=== PATIENT | male | born 1960 | race Caucasian/White ===

== ENCOUNTER 2024-07-29 05:51 | Observation (INO) ==
[2024-07-29] MEDS: ONDANSETRON INJ 2 MG/ML 2 ML VIAL IV STA ×2 (06:31→12:16)
[2024-07-29] MEDS: MoRPHine SULFATE 10 MG/ML CARP/VIAL IV STA (06:31)
[2024-07-29 06:46] LABS: Basophils # (auto) 0.03 K/uL (0.00-0.20); Basophils % (auto) 0.4 %; Eosinophils # (auto) 0.14 K/uL (0.00-0.50); Eosinophils % (auto) 1.7 %; Hematocrit (blood only) 41.2 % (42.0-52.0); Hemoglobin 14.5 g/dl (14.0-18.0); Immature Granulocytes # (auto) 0.02 K/uL (0.01-0.20); Immature Granulocytes % (auto) 0.2 %; Lymphocytes # (auto) 1.87 K/uL (1.20-3.40); Lymphocytes % (auto) 22.2 %; Mean Corpuscular Hemoglobin 32.3 pg (25.0-34.0); Mean Corpuscular Hgb Conc 35.2 g/dL (32.0-36.0); Mean Corpuscular Volume 91.8 fL (80.0-100.0); Mean Platelet Volume 10.4 fL (9.4-12.4); Monocytes # (auto) 0.39 K/uL (0.11-0.59); Monocytes % (auto) 4.6 %; Neutrophils # (auto) 5.96 K/uL (1.40-6.50); Neutrophils % (auto) 70.9 %; Platelet Count 254 K/uL (130-400); RDW Coefficient of Variation 12.1 % (11.5-14.5); RDW Standard Deviation 41.1 fL (36.4-46.3); Red Blood Count 4.49 M/uL (4.70-6.10); White Blood Count 8.41 K/ul (4.8-10.8)
[2024-07-29 06:50] LABS: Appearance Urine Clear (Clear); Bacteria Urine Automated None Seen (None Seen); Bilirubin Urine Negative (Negative); Blood Urine 1+ (Negative); Cast Urine Automated 0-2 /lpf (0-2); Color Urine Yellow; Epithelial Cell Urine Auto 0-2 /hpf (0-2); Glucose Urine UA Negative (Negative); Ketones Urine Negative (Negative); Leukocyte Esterase Urine Negative (Negative); Nitrite Urine Negative (Negative); Protein Urine 1+ (Negative); Specific Gravity Urine 1.024 (1.000-1.030); Urobilinogen Urine Negative (Negative); WBC Urine Automated 0-5 /hpf (0-5); pH Urine 5.5 (4.5-7.5)
[2024-07-29 07:00] LABS: Albumin Globulin Ratio 1.4 (0.9-2); Albumin Level 4.2 gm/dl (3.4-5.0); BUN Creatinine Ratio 17.6 (10-20); Bilirubin,Total 0.5 mg/dl (0.2-1.0); Creatinine Clr Calc Pharmacy 34.5 ml/min; Globulin 3.1 gm/dl (2.5-4.0); Potassium 4.4 mmol/L (3.5-5.1); Total Protein 7.3 gm/dl (6.0-8.3)
[2024-07-29] MEDS: SODIUM CHLORIDE 0.9% 1,000 ML IV ONE (07:20)
[2024-07-29] MEDS: HYDROmorphone INJ 0.5 MG/0.5 ML SYR IV PRN (08:13)
--- NOTE | 2024-07-29 08:30 | XRay Report ---
KUB HISTORY: Acute left-sided flank pain left flank pain COMPARISON: CT abdomen and pelvis 07/24/2024 FINDINGS: The bowel gas pattern is non-obstructive. There is no organomegaly. Surgical clips project over the pelvis. Herniorrhaphy coils. Moderate colonic fecal retention. Numerous calculi of the kidn eys are redemonstrated measuring up to approximately 4 mm.. No ureteral calculi. No pneumoperitoneum or pneumatosis. Lumbar levoscoliosis. No fracture. IMPRESSION: 1. Moderate fecal retention with partial obscuration of the renal shadows. 2. Bilateral nephrolithiasis. No ureteral calculi identified. ACT 112: Negative or not required by law. The above report was generated using voice recognition software. It may contain grammatical, syntax o r spelling errors. Electronically signed by: Darryl Tellez M.D. 07/29/2024 8:28 AM
--- NOTE | 2024-07-29 11:32 | Urology Consultation ---
Date of Consultation July 29, 2024 Assessment & Plan (1) Kidney stones: (2) Hydronephrosis, left: Plan 63 yo M who with a history of nephrolithiasis who presents with left flank pain. CT scan showed obstructing left proximal ureteral calculus. -Given intractable pain, recommended cystoscopy with left stent placement -Consent obtained, patient marked -Ancef to OR History of Present Illness History of Present Illness 63 yo M who with a history of nephrolithiasis who presents with left flank pain. CT scan showed obstructing left proximal ureteral calculus. Afebrile, stable vitals. Labs WNL, patient has CKD. UA negative. Pain unable to be controlled in ED. NPO since last night. Allergies Allergy/AdvReac Type Severity Reaction Status Date / Time Penicillins Allergy Verified 07/29/24 09:17 Home Medications Medication Instructions Recorded Confirmed Type gabapentin 100 mg capsule 100 mg PO HS 07/24/24 07/29/24 History hydrocodone 5 mg-acetaminophen 325 1 tab PO BID PRN Pain 07/24/24 07/29/24 History mg tablet oxycodone-acetaminophen 7.5 mg-325 1 tab PO Q4H PRN Pain 07/24/24 07/29/24 History mg tablet triamcinolone acetonide 55 mcg 2 spray intranasal HS 07/29/24 07/29/24 History nasal spray aerosol (Nasacort) Patient History Social History Smoking Status: Never smoker Preferred Language: Syriac Feels Safe at Home: Yes Physical Exam Physical Exam: General: Alert and oriented, no acute distress HEENT: Normocephalic, mucous membranes moist Pulmonary: Nonlabored respirations Abdomen: Nondistended Extremities: Moves all 4 spontaneously Neuro: No gross deficits Skin: Warm, dry, no rashes noted Results & Data Vital Signs (Past 12 Hours) Vital Signs Temp Pulse Pulse Resp BP BP Pulse Ox 07/29/24 10:14 86 20 206/122 H 95 07/29/24 08:51 83 18 186/108 H 96 07/29/24 05:55 36.5 C 56 L 20 213/122 H 99 O2 Del Method 07/29/24 10:14 Room Air 07/29/24 08:51 Room Air 07/29/24 05:55 Room Air PG Care Time/CCT Total # of Minutes Spent Total Time Spent with Patient: Total time spent is greater than 50% in coordination of care (as documented) at patient's floor/unit and/or counseling patient: Coding Level of Care Code 11050 INT INP/OBS CARE MIN Diagnoses Kidney stones N20.0 Hydronephrosis, left N13.30
[2024-07-29] MEDS ORDERED: LIDOCAINE 2% 2 ML VIAL/AMP(20MG/ML) INFIL ONE (11:43)
[2024-07-29] MEDS ORDERED: PROPOFOL IV EMULSION 10 MG/ML 20 ML VIAL IV ONE ×2 (11:43→12:37)
--- NOTE | 2024-07-29 11:46 | Anesthesiology Consultation ---
Date of Service July 29, 2024 Assessment & Plan Chart Review Chart Review: Acceptable Risk for Surgery and Patient NOT seen in Pre Admission Testing History Surgery Operation Date: 07/29/24 13:00 Proposed Procedures p Cystoscopy(Left) - Alan Henderson MD s Ureteral Stent Insertion/Removal(Left) - Alan Henderson MD Height/Weight Height: 5 ft 5 in Weight: 60.2 kg Allergies Allergy/AdvReac Type Severity Reaction Status Date / Time Penicillins Allergy Verified 07/29/24 09:17 Medications Home Medications Medication Instructions Recorded Confirmed Last Taken gabapentin 100 mg capsule 100 mg PO HS 07/24/24 07/29/24 07/28/24 hydrocodone 5 mg-acetaminophen 325 1 tab PO BID PRN Pain 07/24/24 07/29/24 07/29/24 04:00 mg tablet oxycodone-acetaminophen 7.5 mg-325 1 tab PO Q4H PRN Pain 07/24/24 07/29/24 Unknown mg tablet triamcinolone acetonide 55 mcg 2 spray intranasal HS 07/29/24 07/29/24 07/28/24 nasal spray aerosol (Nasacort) Active Medications Generic Name Dose Route Start Last Admin Trade Name Freq PRN Reason Stop Dose Admin Hydromorphone HCl 0.5 mg 07/29/24 07:07 07/29/24 11:31 Hydromorphone Inj 0.5 Mg/0.5 Ml Syr IV 08/12/24 07:06 0.5 mg Q15M PRN Administration Pain Social History Smoking Status: Never smoker Physical Exam Vital Signs Last Vital Signs Temp 36.5 C 07/29/24 05:55 Pulse 86 07/29/24 10:14 Resp 20 07/29/24 10:14 BP 206/122 H 07/29/24 10:14 Pulse Ox 95 07/29/24 10:14 O2 Del Method Room Air 07/29/24 10:14 Testing Laboratory Results 07/29/24 06:22 07/29/24 06:22 Urine Color Yellow 07/29/24 06:22 Urine Appearance Clear (Clear) 07/29/24 06:22 Urine pH 5.5 (4.5-7.5) 07/29/24 06:22 Ur Specific [place] 1.024 (1.000-1.030) 07/29/24 06:22 Urine Protein 1+ (Negative) H 07/29/24 06:22 Urine Glucose (UA) Negative (Negative) 07/29/24 06:22 Urine Ketones Negative (Negative) 07/29/24 06:22 Urine Nitrite Negative (Negative) 07/29/24 06:22 Ur Leukocyte Esterase Negative (Negative) 07/29/24 06:22 Urine WBC (Auto) 0-5 /hpf (0-5) 07/29/24 06:22 Urine RBC (Auto) 11-20 /hpf (0-2) H 07/29/24 06:22 U Hyaline Cast (Auto) 0-2 /lpf (0-2) 07/29/24 06:22 U Epithel Cells (Auto) 0-2 /hpf (0-2) 07/29/24 06:22 Urine Bacteria (Auto) None Seen (None Seen) 07/29/24 06:22
--- NOTE | 2024-07-29 11:47 | CT Scan Report ---
ABDOMEN AND PELVIS CT WITHOUT CONTRAST CT DOSE: 498.2 mGy.cm HISTORY: Acute left flank pain left flank pain TECHNIQUE: Multiaxial CT images of the abdomen and pelvis were performed without contrast. A dose lo wering technique was utilized adhering to the principles of ALARA. COMPARISON STUDY: 07/24/2024 FINDINGS: Cardiomegaly. Mild bibasilar atelectasis. No pneumatosis or pneumoperitoneum. Unremarkable spleen is moderately dense. Distended gallbladder. Unremarkable liver. Bilateral renal vascular calci fications. Nonobstructing calculi in the right kidney measure up to 5 mm. Moderate left-sided hydrour eteronephrosis with perinephric and periureteral inflammatory stranding secondary to 2 adjacent left ureteral calculi measuring up to 5 mm at the level of L3-L4. Nonobstructing left renal calculi measur ing up to approximately 4 mm. Partial distention of the urinary bladder. Prostamegaly. No lymphadenopathy. Distention of the stomach. Colonic diverticulosis. Prior left-sided hernia repair . Small nonspecific wall thickening of the cecum and ascending colon. Small fat filled umbilical jeffy ia. A small right inguinal hernia contains mesenteric fat and nonobstructed loop of bowel. Degenerati ve changes of the spine, pelvis and hips. Normal appendix. Lumbar levoscoliosis. IMPRESSION: 1. Moderate left-sided hydroureteronephrosis secondary to two adjacent left ureteral calculi measurin g up to 5 mm. 2. Nonobstructing bilateral nephrolithiasis. 3. Colonic diverticulosis. 4. Small right inguinal hernia contains a nonobstructed loop of bowel, unchanged. 5. Mild wall thickening of the cecum and ascending colon with partial distention. 6. Additional findings as above. ACT 112: Negative or not required by law. The above report was generated using voice recognition software. It may contain grammatical, syntax o r spelling errors. Electronically signed by: Darryl Tellez M.D. 07/29/2024 11:45 AM
[2024-07-29] MEDS: ceFAZolin 2000MG 2,000 MG/15 ML SYR IV ONE (12:16)
[2024-07-29] MEDS: hydrALAZINE HCL 20 MG/ML VIAL IV ONE ×2 (12:16→12:34)
[2024-07-29] MEDS ORDERED: fentaNYL citrate PF 100 MCG/2 ML VIAL ONE (12:35)
[2024-07-29] MEDS ORDERED: ONDANSETRON INJ 2 MG/ML 2 ML VIAL ONE (12:36)
[2024-07-29] MEDS ORDERED: HYDROmorphone INJ 0.5 MG/0.5 ML SYR IV PRN ×2 (12:53)
[2024-07-29] MEDS ORDERED: ONDANSETRON INJ 2 MG/ML 2 ML VIAL IV PRN ×2 (12:53→12:55)
[2024-07-29] MEDS ORDERED: ATROPINE SULFATE 0.1 MG/ML 10ML SYR IV PRN (12:55)
[2024-07-29] MEDS ORDERED: HYDROmorphone INJ 1 MG/ML SYRINGE IV PRN (12:55)
[2024-07-29] MEDS ORDERED: fentaNYL citrate PF 100 MCG/2 ML VIAL IV PRN (12:55)
[2024-07-29] MEDS ORDERED: ePHEDrine sulfate 50 MG/ML AMP IV PRN (12:55)
--- NOTE | 2024-07-29 13:14 | History & Physical Report ---
Date of Service July 29, 2024 Assessment & Plan (1) Hydronephrosis, left: (2) Kidney stones: Plan This is a 63 year old gentleman with past medical history of kidney stones and inguinal hernia who presented to the ED on 07/29 for flank pain. #hydroureteronephrosis/obstructive stone CTAP: moderate left sided hydroureteronephrosis secondary to two adjacent left ureteral calculi measuring up to 5mm. nonobstructing b/l nephrolithiasis. small inguinal hernia contains nonobstructed loop of bowel unchanged. mild wall thickening of cecum and ascending colon w/ partial distention KUB: moderate fecal retention w/ partial obscuration of renal shadows. b/l ne phrolithiasis. CBC w/o leukocytosis BMP w/ creatinine of 1.82, improved from 2/3. Unsure of baseline but elevation likely secondary to obstructive stone Urinalysis + for blood, negative for infection Urology consulted - recommending cystoscopy, pain management. preop Ancef given prior to procedure. Pain regimen - Dilaudid 0.5mg or 1mg IV q 3h for severe pain. Zofran prn N/V Clear liquid diet following procedure, can advance as tolerated. Patient does have upcoming appointment in [place] w/ urologist as he plans to relocate to that area. #HTN No history of hypertension per pt chart and not currently on anti-hypertensives s/p IV Hydralazine in ED and BP still 218/122 Likely secondary to pain Monitor BP, patient may require initiation of anti-hypertensive if pressures continue to stay elevated and pain becomes controlled Case discussed w/ Dr. Damian at time of admission. DVT prophylaxis: SCD's, encourage ambulation as able. Code: full History of Present Illness Primary Care Provider: NO PCP This is a 63 year old gentleman with past medical history of kidney stones and inguinal hernia who presented to the ED on 07/29 for flank pain. Patient reports that he has had ongoing flank pain for the last ~3.5 weeks. He reports it worsened overnight which was what prompted him to come to the ED. Patient reports 12/10 on pain scale at time of my encounter despite multiple doses of pain medication. Patient reports he has a history of kidney stones and is currently in the process of relocating to [place]. He reports he has a urology appointment in [place] in the upcoming weeks. He reports he has had stent placement in the past. He had an episode of emesis earlier but was given Zofran with relief. In the ED he underwent a CT scan that revealed moderate left sided hydroureteronephrosis secondary to two adjacent left ureteral calculi measuring up to 5mm. His creatinine was 1.82, baseline unknown given lack of labs in chart but this was improved from his recent ED trip for flank pain on 07/23. WBC WNL. Urology was consulted and patient is to go emergently to OR to have stent placed. He was given Ancef preoperatively. Patient also has been hypertensive since reporting to the ED, likely secondary to pain. He is not on anti- hypertensives outpatient per his medications. Allergies Allergy/AdvReac Type Severity Reaction Status Date / Time Penicillins Allergy Verified 07/29/24 09:17 Home Medications Medication Instructions Recorded Confirmed Type gabapentin 100 mg capsule 100 mg PO HS 07/24/24 07/29/24 History hydrocodone 5 mg-acetaminophen 325 1 tab PO BID PRN Pain 07/24/24 07/29/24 History mg tablet oxycodone-acetaminophen 7.5 mg-325 1 tab PO Q4H PRN Pain 07/24/24 07/29/24 History mg tablet triamcinolone acetonide 55 mcg 2 spray intranasal HS 07/29/24 07/29/24 History nasal spray aerosol (Nasacort) Past Med/Surg History Problem List (Updated 07/29/24 @ 16:09 by Maninder aMtthew MD) Severe hypertension (Acute) Ureterolithiasis (Acute) Acute left flank pain (Acute) Hydronephrosis, left (Acute) H1N1 influenza (Acute) Kidney stones (Acute) Inguinal hernia (Acute) Right lower quadrant pain (Acute) Social History Smoking Status: Smoker, status unknown Hx Alcohol Use: Yes Hx Substance Use: No Preferred Language: Malaysian Communication Ability: Effective Chemical Cell Changer Required: No Beliefs That Will Affect Care: None Current Living Situation: Spouse Other Information That Helps Us Care for You: No Feels Safe at Home: Yes Safety Concerns: Feels Safe At This Time Assistive Devices: Glasses Physical Exam Constitutional: WD/WN, vitals as above Eyes: PERRL, conjunctivae normal, anicteric sclerae Respiratory: normal respiratory effort, lungs clear to auscultation Cardiovascular: RRR, no murmur, no edema Gastrointestinal (Abdomen): +BS, + tenderness to LLQ. negative CVA t enderness Musculoskeletal: moves all extremities Psychiatric: A+Ox3, euthymic affect Results & Data Results & Data Vital Signs (Past 12 Hours) Vital Signs Temp Pulse Pulse Resp BP BP Pulse Ox 07/29/24 12:48 07/29/24 12:46 93 H 07/29/24 12:26 93 H 24 218/122 H 97 07/29/24 10:14 86 20 206/122 H 95 07/29/24 08:51 83 18 186/108 H 96 07/29/24 05:55 36.5 C 56 L 20 213/122 H 99 O2 Del Method 07/29/24 12:48 Room Air 07/29/24 12:46 07/29/24 12:26 Room Air 07/29/24 10:14 Room Air 07/29/24 08:51 Room Air 07/29/24 05:55 Room Air Supervising Physician Co-Signing Physician Notes I personally saw and examined the patient. I independently reviewed the labs, imaging, problem list, medication list, past medical history and family history. I verified all dillon points and agree with Shavon Jauregui PA-C with the following exceptions and/or additions: 63 year old presents to the ER presents to the ER with left flank pain. Patient seen post op following ureteral stent and reports doing significantly better. O/E HS RRR, no murmurs, Chest CTAB, Abdo SNT, no CVA tenderness A/P Left ureterolithiasis - s/p ureterolithiasis, acetaminophen added PRN, monitor overnight PG Care Time/CCT Total # of Minutes Spent Total Time Spent with Patient: Total time spent is greater than 50% in coordination of care (as documented) at patient's floor/unit and/or counseling patient: Coding Level of Care Code 82960 INT INP/OBS CARE MIN Diagnoses Hydronephrosis, left N13.30 Kidney stones N20.0
--- NOTE | 2024-07-29 13:17 | Operative Report ---
PG Post Operative Report Pre & Post Diagnosis Left urolithiasis Operation Date: 07/29/24 13:00 <No data on this case meets the specified criteria> Left urolithiasis I identified the patient and participated in the time-out.: Yes Procedure Cystoscopy, left retrograde pyelogram with radiographic interpretation, left ureteral stent placement Operation Date: 07/29/24 13:00 <No data on this case meets the specified criteria> Surgeon Alan Henderson MD Licensed Tax Consultant None Estimated Blood Loss 0 Findings See Below Moderate left hydronephrosis. Stent in appropriate position. Specimens None Drains 6 [place] by 26 cm left ureteral stent Anesthesia Type General Complications none Indications 63-year-old male with a left proximal obstructing ureteral calculus and intractable pain Description of Procedure After informed consent was obtained, the patient was transported operative suite. General anesthesia was induced. The patient was placed in dorsal lithotomy position prepped and draped in a sterile fashion. They received preoperative Ancef for antibiotic prophylaxis. An appropriate surgical timeout was performed. A 22 [place] rigid scope was inserted per urethra into the bladder. Flanagan cystoscopy revealed no stones or lesions. I turned my attention the left ureteral orifice and intubated this with a 5 [place] open-ended catheter. A left retrograde pyelogram was shot which showed moderate left hydronephrosis. A sensor wire was advanced into the kidney and confirmed fluoroscopically. A 6 [place] by 26 cm left ureteral stent was deployed with a good proximal coil in the renal pelvis and a good distal coil noted in the bladder. These were confirmed fluoroscopically and under direct visualization, respectively. The bladder was emptied and the scope was removed. This concluded the end of the ca se. All counts were correct at the end of the case. I was present, scrubbed, and actively participated for the entirety of the procedure. I attest to the content of the Intraoperative Record and any orders documented therein. Any exceptions are noted below.
[2024-07-29] MEDS: DIATRIZOATE MEGLUMINE 30% 100ML VIAL INSTIL PRN (13:19)
[2024-07-29] MEDS ORDERED: SUCCINYLCHOLINE CHLORIDE 20 MG/ML 10 ML VIAL IV ONE (13:21)
--- NOTE | 2024-07-29 13:26 | Fluoroscopy Report ---
FL retrograde includes kub CLINICAL HISTORY: Cysto/stentstatus post placement of a left ureteral stent COMPARISON STUDY: CT of same FLUOROSCOPY TIME: 8.2 seconds FLUOROSCOPY IMAGES: 2 EXPOSURE DOSE: 1.60 mGy FINDINGS: Status post placement of a left renal stent which appears to be in satisfactory positioning proximal, distal portion was not imaged. There is persistent hydronephrosis. Lumbar levoscoliosis. IMPRESSION: Fluoroscopic assistance of the above. ACT 112: Negative or not required by law. Electronically signed by: Darryl Tellez M.D. 07/29/2024 1:25 PM
--- NOTE | 2024-07-29 13:43 | Anesthesiology Progress Note ---
Date of Service July 29, 2024 Anesthesia Post Procedure Vital Signs Vital Signs: Temp Pulse Pulse Pulse Resp BP BP 07/29/24 13:40 36.8 C 88 18 156/88 H 07/29/24 13:30 93 H 22 165/89 H 07/29/24 13:23 36.1 C L 89 20 162/90 H 07/29/24 12:48 07/29/24 12:46 93 H 07/29/24 12:26 93 H 24 218/122 H 07/29/24 10:14 86 20 206/122 H 07/29/24 08:51 83 18 186/108 H 07/29/24 05:55 36.5 C 56 L 20 213/122 H Pulse Ox O2 Del Method O2 Flow Rate 07/29/24 13:40 95 Room Air 07/29/24 13:30 97 Room Air 07/29/24 13:23 99 Oxymask 4 07/29/24 12:48 Room Air 07/29/24 12:46 07/29/24 12:26 97 Room Air 07/29/24 10:14 95 Room Air 07/29/24 08:51 96 Room Air 07/29/24 05:55 99 Room Air Pain Intensity Left Flank: Pain Intensity: 10 Transfer of Care Handoff Completed per policy Notes Mental Status: alert / awake / arousable and participated in evaluation Patient Amnestic to Procedure: Yes Nausea / Vomiting: adequately controlled Pain: adequately controlled Airway Patency, RR, SpO2: stable & adequate BP & HR: stable & adequate Hydration State: stable & adequate Anesthetic Complications: no major complications apparent and Pt Satisfied with anesthetic care
--- NOTE | 2024-07-29 16:09 | Emergency Department Note ---
Impression & Plan Acute left flank pain, Hydronephrosis, left, Ureterolithiasis, Severe hypertension ED Provider Note NAME: JC LUNA AGE: 63 SEX: Male INFORMANT: Patient ED PROVIDER(S): Maninder Matthew MD CHIEF COMPLAINT: Flank pain PLAN: Disposition: Admitted Outpatient prescription management: none Referral: None MEDICAL DECISION MAKING: Patient presented because of flank pain. History of kidney stones and note is felt the same. His CBC and chemistry panel was unremarkable. Patient did have hematuria noted on urinalysis. Patient patient was given multiple doses of IV narcotics and was still uncomfortable. He was also treated with IV Zofran x 2. Patient did have an episode of vomiting in the emergency department. Patient was treated with IV hydralazine 5 mg x 2 due to severe hypertension. Suspect a component of pain driving this. The patient had unremarkable KUB and given the multiple doses of IV narcotics required for symptom control he underwent CT imaging. Patient was found to be passing 2 stones on the left side with hydronephrosis. Consultation was made with Dr. Henderson of urology. Case discussed and diagnostics were reviewed. He felt the patient would benefit from a ureteral stent and will likely take the patient to the OR. [facility]. Patient was evaluated in the ER admitted for further management Care/management discussed with: Urology, internal medicine, safety manager Level of care consideration(s): After review of the information above and other included data, I feel the patient requires escalation of care to admission Triage Nursing notes: reviewed and agree them. Vital Signs: reviewed and remarkable for severe hypertension Additional History obtained from: none Chronic Medical/Social Conditions affecting care: none Prior/ Outside/ External records reviewed: none Differential Diagnosis: Renal colic, UTI, appendicitis, diverticulitis, mesenteric ischemia, aortic pathology, infections, inflammatory bowel disease, PUD, biliary pathology, as well as other pathologies. Diagnostics, independently interpreted by me: ECG: none Cardiac Monitoring: Cardiac monitoring ordered by me: The patient was placed on continuous cardiac monitoring and observed. It revealed a normal sinus rhythm at 94 beats per minute without ectopy or evidence of dysrhythmia. Medical decision rules: none Imaging studies: KUB and CT scan as above. I refer you to the EMR for further details. HPI: 63 year old Male arrives for evaluation of left flank pain. This started yesterday and is persisting. The patient also notes the following associated symptoms, none. Patient has a history of kidney stones and this feels the same. He was recently here and worked up with a diagnosis of influenza. He notes influenza symptoms that started 10 days ago but has been feeling good since. He has not had a fever in the last 5 days. The patient has found no relieving factors. Current pain is rated as 10/10. Patient did note some nausea and vomiting as well. Pt denies LOC, headache, fevers, chills, diaphoresis, visual changes, neck pain, chest pain, breathing difficulties, melena, hematochezia, urinary symptoms, numbness, weakness, lymphadenopathy, rash, or other complaints.. PAST MEDICAL HISTORY: See Below, kidney stones, influenza PAST SURGICAL HISTORY: See Below, SOCIAL HISTORY: See Below, retired HOME MEDICATIONS: See Below ALLERGIES: See Below VITALS: See Below PHYSICAL EXAMINATION: GENERAL: Awake, alert, uncomfortable-appearing, in no distress HENT: Normocephalic, atraumatic. Oropharynx unremarkable. EYES: Normal conjunctiva. Sclera non-icteric. NECK: Inspection normal. Non-tender. Supple. No nuchal rigidity. FROM. No masses. RESPIRATORY: Clear to auscultation. No wheezes. No rales. Normal respiratory effort. CARDIAC: Normal rate. Normal rhythm. No murmurs. No rubs. Extremities warm and well perfused. Pulses equal. No JVD. GI: Soft, non-distended. Left-sided tenderness to palpation. No rebound or guarding. No masses. RECTAL: Deferred. MUSCULOSKELETAL: Atraumatic. Chest examination reveals no tenderness. The back is symmetrical on inspection without obvious abnormality. There is n left o CVA tenderness to palpation. No joint edema. LOWER EXTREMITIES: Calves are equal size bilaterally and non-tender. No edema. No discoloration. NEURO: Normal sensorium. No sensory or motor deficits noted. SKIN: No rash or jaundice noted. PROCEDURES: none CRITICAL CARE: none OBSERVATION NOTE: none Past Med/Surg History Problem List (Updated 07/29/24 @ 16:09 by Maninder Matthew MD) Severe hypertension (Acute) Ureterolithiasis (Acute) Acute left flank pain (Acute) Hydronephrosis, left (Acute) H1N1 influenza (Acute) Kidney stones (Acute) Inguinal hernia (Acute) Right lower quadrant pain (Acute) Social History Smoking Status: Never smoker Preferred Language: Hungarian Feels Safe at Home: Yes Allergies Allergies Allergy/AdvReac Type Severity Reaction Status Date / Time Penicillins Allergy Verified 07/29/24 09:17 Home Meds Home Medications Medication Instructions Recorded Confirmed gabapentin 100 mg capsule 100 mg PO HS 07/24/24 07/29/24 hydrocodone 5 mg-acetaminophen 325 1 tab PO BID PRN Pain 07/24/24 07/29/24 mg tablet oxycodone-acetaminophen 7.5 mg-325 1 tab PO Q4H PRN Pain 07/24/24 07/29/24 mg tablet triamcinolone acetonide 55 mcg 2 spray intranasal HS 07/29/24 07/29/24 nasal spray aerosol (Nasacort) Results & Data (ED) Vital Signs Vital Signs - 24 hr 07/29/24 05:55 07/29/24 08:51 07/29/24 10:14 Temperature 36.5 C Temperature Source Oral Pulse Rate 56 L Pulse Rate [Finger] 83 86 Pulse Rhythm Regular Pulse Strength Normal Respiratory Rate 20 18 20 Respiratory Effort / Characteristics Non-Labored Spontaneous Respiratory Depth Normal Respiratory Pattern Regular Blood Pressure 213/122 H Blood Pressure [Left Arm] 186/108 H 206/122 H Blood Pressure Mean 152 Blood Pressure Mean [Left Arm] 134 150 Blood Pressure Position Sitting Pulse Oximetry 99 96 95 Oxygen Delivery Method Room Air Room Air Room Air Sepsis Recent Fever Within 48 Hours No Sepsis New/Unexplained Change in Mental Status N/A Sepsis Action Taken by Nursing No Action Required 07/29/24 12:26 07/29/24 12:46 07/29/24 12:48 Temperature Temperature Source Pulse Rate 93 H Pulse Rate [Finger] 93 H Pulse Rhythm Pulse Strength Respiratory Rate 24 Respiratory Effort / Characteristics Respiratory Depth Respiratory Pattern Blood Pressure Blood Pressure [Left Arm] 218/122 H Blood Pressure Mean Blood Pressure Mean [Left Arm] 154 Blood Pressure Position Pulse Oximetry 97 Oxygen Delivery Method Room Air Room Air Sepsis Recent Fever Within 48 Hours Sepsis New/Unexplained Change in Mental Status Sepsis Action Taken by Nursing Laboratory Data 07/29/24 06:22 07/29/24 06:22 Lab Results 07/29/24 Range/Units 06:22 WBC 8.41 (4.8-10.8) K/ul RBC 4.49 L (4.70-6.10) M/uL Hgb 14.5 (14.0-18.0) g/dl Hct 41.2 L (42.0-52.0) % MCV 91.8 (80.0-100.0) fL MCH 32.3 (25.0-34.0) pg MCHC 35.2 (32.0-36.0) g/dL RDW Std Deviation 41.1 (36.4-46.3) fL RDW Coeff of [place] 12.1 (11.5-14.5) % Plt Count 254 (130-400) K/uL MPV 10.4 (9.4-12.4) fL Immature Gran % (Auto) 0.2 % Neut % (Auto) 70.9 % Lymph % (Auto) 22.2 % [place] % (Auto) 4.6 % Eos % (Auto) 1.7 % Baso % (Auto) 0.4 % Neut # (Auto) 5.96 (1.40-6.50) K/uL Lymph # (Auto) 1.87 (1.20-3.40) K/uL [place] # (Auto) 0.39 (0.11-0.59) K/uL Eos # (Auto) 0.14 (0.00-0.50) K/uL Baso # (Auto) 0.03 (0.00-0.20) K/uL Immature Gran # (Auto) 0.02 (0.01-0.20) K/uL Sodium 140 (136-145) mmol/L Potassium 4.4 (3.5-5.1) mmol/L Chloride 108 H (98-107) mmol/L Carbon Dioxide 24 (21-32) mmol/L Anion Gap 8 (3-11) BUN 32 H (6-23) mg/dl Creatinine 1.82 H (0.6-1.4) mg/dl Est Cr Clr Drug Dosing 34.5 ml/min eGFR 40.71 BUN/Creatinine Ratio 17.6 (10-20) Glucose 121 H (70-99(Fasting)) mg/dl Calcium 9.0 (8.6-10.3) mg/dl Total Bilirubin 0.5 (0.2-1.0) mg/dl AST 16 (13-39) U/L ALT 13 (7-52) U/L Alkaline Phosphatase 55 (34-104) U/L Total Protein 7.3 (6.0-8.3) gm/dl Albumin 4.2 (3.4-5.0) gm/dl Globulin 3.1 (2.5-4.0) gm/dl Albumin/Globulin Ratio 1.4 (0.9-2) Urine Color Yellow Urine Appearance Clear (Clear) Urine pH 5.5 (4.5-7.5) Ur Specific [place] 1.024 (1.000-1.030) Urine Protein 1+ H (Negative) Urine Glucose (UA) Negative (Negative) Urine Ketones Negative (Negative) Urine Blood 1+ H (Negative) Urine Nitrite Negative (Negative) Urine Bilirubin Negative (Negative) Urine Urobilinogen Negative (Negative) Ur Leukocyte Esterase Negative (Negative) Urine WBC (Auto) 0-5 (0-5) /hpf Urine RBC (Auto) 11-20 H (0-2) /hpf U Hyaline Cast (Auto) 0-2 (0-2) /lpf U Epithel Cells (Auto) 0-2 (0-2) /hpf Urine Bacteria (Auto) None Seen (None Seen) Administered Medications Diatrizoate Meglumine (Diatrizoate Meglumine 30% 100ml Vial) 5 ml INSTIL UD PRN PRN Reason: Radiology Use Stop: 08/02/24 13:18 Last Admin: 07/29/24 13:19 Dose: 5 ml Documented By: [id number] Discontinued Medications Hydralazine HCl (Hydralazine Hcl 20 Mg/Ml Vial) 5 mg IV NOW ONE Stop: 07/29/24 11:54 Last Admin: 07/29/24 12:16 Dose: 5 mg Documented By: PAO Hydralazine HCl (Hydralazine Hcl 20 Mg/Ml Vial) 5 mg IV NOW ONE Stop: 07/29/24 12:32 Last Admin: 07/29/24 12:34 Dose: 5 mg Documented By: PAO Hydromorphone HCl (Hydromorphone Inj 0.5 Mg/0.5 Ml Syr) 0.5 mg IV Q15M PRN PRN Reason: Pain Stop: 08/12/24 07:06 Last Admin: 07/29/24 12:34 Dose: 0.5 mg Documented By: Admin: 07/29/24 11:31 Dose: 0.5 mg Documented By: Admin: 07/29/24 10:28 Dose: 0.5 mg Documented By: Admin: 07/29/24 09:32 Dose: 0.5 mg Documented By: Admin: 07/29/24 08:52 Dose: 0.5 mg Documented By: Admin: 07/29/24 08:13 Dose: 0.5 mg Documented By: PAO Sodium Chloride (Nss) 1,000 mls @ 999 mls/hr IV .Q1H1M ONE Stop: 07/29/24 08:07 Last Infusion: 07/29/24 08:33 Dose: Infused Documented By: Admin: 07/29/24 07:20 Dose: 999 mls/hr Documented By: PAO Cefazolin Sodium (Ancef 2000mg) 2,000 mg in 15 mls @ 3.75 mls/min IV PREOP ONE; Protocol Stop: 07/29/24 11:35 Last Admin: 07/29/24 12:16 Dose: 3.75 mls/min Documented By: PAO Morphine Sulfate (Morphine Sulfate 10 Mg/Ml Carp/Vial) 6 mg IV NOW STA Stop: 07/29/24 06:24 Last Admin: 07/29/24 06:31 Dose: 6 mg Documented By: ZULEIKA Ondansetron HCl (Ondansetron Inj 2 Mg/Ml 2 Ml Vial) 4 mg IV NOW STA Stop: 07/29/24 06:24 Last Admin: 07/29/24 06:31 Dose: 4 mg Documented By: ZULEIKA Ondansetron HCl (Ondansetron Inj 2 Mg/Ml 2 Ml Vial) 4 mg IV NOW STA Stop: 07/29/24 12:12 Last Admin: 07/29/24 12:16 Dose: 4 mg Documented By: PAO Imaging Data Radiologist's Impression: KUB X-Ray 07/29/24 07:08 KUB HISTORY: Acute left-sided flank pain left flank pain COMPARISON: CT abdomen and pelvis 07/24/2024 FINDINGS: The bowel gas pattern is non-obstructive. There is no organomegaly. Surgical clips project over the pelvis. Herniorrhaphy coils. Moderate colonic fecal retention. Numerous calculi of the kidneys are redemonstrated measuring up to approximately 4 mm.. No ureteral calculi. No pneumoperitoneum or pneumatosis. Lumbar levoscoliosis. No fracture. IMPRESSION: 1. Moderate fecal retention with partial obscuration of the renal shadows. 2. Bilateral nephrolithiasis. No ureteral calculi identified. ACT 112: Negative or not required by law. The above report was generated using voice recognition software. It may contain grammatical, syntax or spelling errors. Electronically signed by: Darryl Tellez M.D. 07/29/2024 8:28 AM Abdomen/Pelvis CT 07/29/24 10:[address] WITHOUT CONTRAST CT DOSE: 498.2 mGy.cm HISTORY: Acute left flank pain left flank pain TECHNIQUE: Multiaxial CT images of the abdomen and pelvis were performed without contrast. A dose lowering technique was utilized adhering to the principles of ALARA. COMPARISON STUDY: 07/24/2024 FINDINGS: Cardiomegaly. Mild bibasilar atelectasis. No pneumatosis or pneumoperitoneum. Unremarkable spleen is moderately dense. Distended gallbladder. Unremarkable liver. Bilateral renal vascular calcifications. Nonobstructing calculi in the right kidney measure up to 5 mm. Moderate left- sided hydroureteronephrosis with perinephric and periureteral inflammatory stranding secondary to 2 adjacent left ureteral calculi measuring up to 5 mm at the level of L3-L4. Nonobstructing left renal calculi measuring up to approximately 4 mm. Partial distention of the urinary bladder. Prostamegaly. No lymphadenopathy. Distention of the stomach. Colonic diverticulosis. Prior left-sided hernia repair. Small nonspecific wall thickening of the cecum and ascending colon. Small fat filled umbilical hernia. A small right inguinal hernia contains mesenteric fat and nonobstructed loop of bowel. Degenerative changes of the spine, pelvis and hips. Normal appendix. Lumbar levoscoliosis. IMPRESSION: 1. Moderate left-sided hydroureteronephrosis secondary to two adjacent left ureteral calculi measuring up to 5 mm. 2. Nonobstructing bilateral nephrolithiasis. 3. Colonic diverticulosis. 4. Small right inguinal hernia contains a nonobstructed loop of bowel, unchanged. 5. Mild wall thickening of the cecum and ascending colon with partial distention. 6. Additional findings as above. ACT 112: Negative or not required by law. The above report was generated using voice recognition software. It may contain grammatical, syntax or spelling errors. Electronically signed by: Darryl Tellez M.D. 07/29/2024 11:45 AM Retrograde Pyelogram 07/29/24 11:40 FL retrograde includes kub CLINICAL HISTORY: Cysto/stentstatus post placement of a left ureteral stent COMPARISON STUDY: CT of same FLUOROSCOPY TIME: 8.2 seconds FLUOROSCOPY IMAGES: 2 EXPOSURE DOSE: 1.60 mGy FINDINGS: Status post placement of a left renal stent which appears to be in satisfactory positioning proximal, distal portion was not imaged. There is persistent hydronephrosis. Lumbar levoscoliosis. IMPRESSION: Fluoroscopic assistance of the above. ACT 112: Negative or not required by law. Electronically signed by: Darryl Tellez M.D. 07/29/2024 1:25 PM Discharge Plan Visit Data Chief Complaint: Flank Pain Stated Complaint: FLANK PAIN ED Provider: Maninder Matthew Discharge Problem: Acute left flank pain, Hydronephrosis, left, Ureterolithiasis, Severe hypertension Patient Disposition: Admitted As Inpatient Discharge Instructions Interventions: ED Discharge Assessment Last Done: 07/29/24 12:48
[2024-07-29] MEDS: ACETAMINOPHEN 325 MG TAB PO PRN (18:20)
[2024-07-29] MEDS: GABAPENTIN 100 MG CAP PO SCH (20:17)
[2024-07-30 03:11] VITALS: RESP 16
[2024-07-30 06:07] LABS: Hematocrit (blood only) 41.2 % (42.0-52.0); Hemoglobin 14.3 g/dl (14.0-18.0); Mean Corpuscular Hemoglobin 31.8 pg (25.0-34.0); Mean Corpuscular Hgb Conc 34.7 g/dL (32.0-36.0); Mean Corpuscular Volume 91.8 fL (80.0-100.0); Mean Platelet Volume 9.9 fL (9.4-12.4); Platelet Count 229 K/uL (130-400); RDW Coefficient of Variation 12.4 % (11.5-14.5); RDW Standard Deviation 41.9 fL (36.4-46.3); Red Blood Count 4.49 M/uL (4.70-6.10); White Blood Count 5.84 K/ul (4.8-10.8)
[2024-07-30 06:25] LABS: BUN Creatinine Ratio 13.7 (10-20); Potassium 4.8 mmol/L (3.5-5.1)
[2024-07-30 07:27] VITALS: O2SAT 96
--- NOTE | 2024-07-30 09:20 | Urology Progress Note ---
Date of Service July 30, 2024 Assessment & Plan (1) Ureterolithiasis: (2) Hydronephrosis, left: Plan Patient is status post Cystoscopy with left ureteral stent placement 07/29/2024 Patient tolerating stent well Patient is stable for discharge home from urologic perspective Message has already been sent to get patient scheduled for stone treatment follow-up Recommend discharging patient home on narcotics, Tylenol, ibuprofen, Flomax and oxybutynin 5 mg extended release daily Urology to sign off Admission and Anticipated Discharge Date Admission Date: July 29, 2024 Subjective Patient is status post left ureteral stent placement yesterday. Afebrile with stable vitals.Patient is status post left ureteral stent placement for obstruct ing stone yesterday. Vitals are stable this morning. Labs today show white count of 5.8, creatinine of 1.68. Patient reports feeling much better than yesterday with only minimal bother from the stent Physical Exam Physical Exam: General: Alert and oriented, no acute distress HEENT: Normocephalic, mucous membranes moist Pulmonary: Nonlabored respirations Abdomen: Nondistended Extremities: Moves all 4 spontaneously Neuro: No gross deficits Skin: Warm, dry, no rashes noted Results & Data Vital Signs (Past 12 Hours) Vital Signs Temp Pulse Pulse Resp BP Pulse Ox O2 Del Method 07/30/24 07:42 81 07/30/24 07:27 36.9 C 64 16 144/83 H 96 Room Air 07/30/24 03:10 36.9 C 68 16 156/88 H 94 Room Air 07/29/24 23:11 37.0 C 74 18 125/80 95 Room Air 07/29/24 21:46 103 H PG Care Time/CCT Total # of Minutes Spent Total Time Spent with Patient: Total time spent is greater than 50% in coordination of care (as documented) at patient's floor/unit and/or counseling patient: Coding Level of Care Code 21276 SUB INP/OBS CARE 235MIN Diagnoses Ureterolithiasis N20.1 Hydronephrosis, left N13.30
[2024-07-30 11:20] VITALS: BP 148/84; PULSE 67; TEMP 98.6
--- NOTE | 2024-07-30 18:02 | Discharge Summary ---
Discharge Summary Date of Service July 30, 2024 Principal Dx & Hospital Course #1 = Principal Diagnosis (1) Hydronephrosis, left: (2) Kidney stones: Plan This is a 63 year old gentleman with past medical history of kidney stones and inguinal hernia who presented to the ED on 07/29 for flank pain. #hydroureteronephrosis/obstructive stone CTAP: moderate left sided hydroureteronephrosis secondary to two adjacent left ureteral calculi measuring up to 5mm. nonobstructing b/l nephrolithiasis. small inguinal hernia contains nonobstructed loop of bowel unchanged. mild wall thickening of cecum and ascending colon w/ partial distention Urinalysis + for blood, negative for infection Urology consulted - underwent cystoscopy with left ureteral stent placement by Dr. 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 Creatinine was 1.94 on July 24, improved to 1.82 then 1.68 this morning baseline unknown recommended follow-up with primary care for repeat BMP, nephrology referral if he does indeed have CKD #HTN No history of hypertension per pt chart and not currently on anti-hypertensives severely hypertensive in the ED with blood pressures in the 200s over 100s, treated with IV medications, was mainly related to pain and significantly improved today blood pressure still moderately elevated at [id number] today, he may have mild to moderate hypertension and may benefit from medication I recommended he monitor his blood pressure at home and keep a record, follow- up in primary care to see whether he would benefit from antihypertensive treatment Notes For Next Care Provider evaluate hypertension on follow-up, consider medication if not improved please check repeat BMP in 1 to 2 weeks to see if creatinine improved, unclear whether all CHEN or whether there is underlying CKD Medication Changes From Visit added tamsulosin and oxybutynin Admission HPI Per Admitting Provider This is a 63 year old gentleman with past medical history of kidney stones and inguinal hernia who presented to the ED on 07/29 for flank pain. Patient reports that he has had ongoing flank pain for the last ~3.5 weeks. He reports it worsened overnight which was what prompted him to come to the ED. Patient reports 12/10 on pain scale at time of my encounter despite multiple doses of pain medication. Patient reports he has a history of kidney stones and is currently in the process of relocating to [place]. He reports he has a urology appointment in [place] in the upcoming weeks. He reports he has had stent placement in the past. He had an episode of emesis earlier but was given Zofran with relief. In the ED he underwent a CT scan that revealed moderate left sided hydroureteronephrosis secondary to two adjacent left ureteral calculi measuring up to 5mm. His creatinine was 1.82, baseline unknown given lack of labs in chart but this was improved from his recent ED trip for flank pain on 07/23. WBC WNL. Urology was consulted and patient is to go emergently to OR to have stent placed. He was given Ancef preoperatively. Patient also has been hypertensive since reporting to the ED, likely secondary to pain. He is not on anti- hypertensives outpatient per his medications. Discharge Plan Discharge Items Patient Disposition: Home - Self-Care Reason For Visit: FLANK PAIN Discharge Diagnosis: Left ureteral stones Activity: Resume your previous activity Non-emergency contact: Primary Care Provider and Urologist Call non-emergency contact if: you have any medication questions, your symptoms worsen, your pain is not controlled and you have a fever Follow-up/Referrals: Alan Henderson MD [Physician] - PCP,NO [Primary Care Provider] - Diet: Regular Addtl Attending Provider Instructions: You were treated for left sided kidney stones in your ureter Stent was placed to stabilize the stones and allow urine to drain past them Follow up with urology for definitive stone treatment and stent exchange - clinic should be calling you to schedule You can take acetaminophen as directed for stent pain and hydrocodone for more severe pain I recommend generally avoiding NSAIDS like ibuprofen or naproxen because they could cause you a kidney injury - an occasional dose is probably ok The urologist recommended tamsulosin (flomax) to help relax the smooth muscle in the urinary system and oxybutynin to prevent bladder spasm from the stent. Its ok to stop the oxybutynin if you are having any side effects or if you don't need it. Your blood pressure was very high in the ER - this was related to pain. Its still moderately elevated today. Monitor your blood pressure at home and follow up in primary care to see whether you would benefit from medicine to control high blood pressure. Your creatinine, which reflects kidney function, is elevated - It is improving after the stent however. Follow up in primary care for repeat labs in a few weeks to make sure it improves. If it remains significantly elevated you might benefit from seeing a service supervisor to check for chronic kidney disease. Seek medical attention if you have worsening pain, fever, inability to urinate. A little bit of blood in the urine (pink, no clots) can happen from stent irritation, however, call the urologist if you have a significant amount of urinary bleeding or clots It was a pleasure taking care of you in the hospital, Patt Gandhi MD Pending Studies at Discharge: No Stand-Alone Forms: My [facility] [employer], Smoking Cessation Medications and DC Order Prescriptions: New tamsulosin [Flomax] 0.4 mg capsule 0.4 mg PO DAILY Qty: 30 0RF oxybutynin chloride 5 mg tablet extended release 24hr 5 mg PO DAILY Qty: 30 0RF Continued hydrocodone-acetaminophen 5-325 mg tablet 1 tab PO BID PRN (Reason: Pain) Rx Instructions: Pt states they took 0.5 tab on the morning of 07/29/24 gabapentin 100 mg capsule 100 mg PO HS triamcinolone acetonide [Nasacort] 55 mcg Aerosol,Union 2 spray INTRANASAL HS Rx Instructions: administer into each nostril Discontinued oxycodone-acetaminophen 7.5-325 mg tablet 1 tab PO Q4H PRN (Reason: Pain) Rx Instructions: Per pt he has about 18 tablets left, hasn't been taking it as directed as it makes his stomach hurt. Discharge Orders: Discharge Order (Routine); Ordered 07/30/24 Ordered By: Patt Gandhi Admission Data Admit Date/Time: 07/29/24 12:53 Attending Provider: Patt Gandhi Admit Provider: Bernardo Damian Primary Care Provider: PCP,NO Other Providers: Bernardo Damian Other Interventions: Discharge Summary Assessment (RN) Last Done: 07/30/24 11:28 Hospital Stay Data Consultations 07/29/24 12:31 ED Decision to Admit Stat Procedures Performed Operation Date: 07/29/24 13:00 Actual Procedures p Cystoscopy with left retrograde pyelogram, and(Left) - Alan Henderson MD s Left Ureteral Stent Insertion(Left) - Alan Henderson MD Diagnostic Imagining Performed 07/29/24 10:37 CT Abd and Pelvis [CT abd pelvis wo con] Stat 07/29/24 11:40 FL retrograde includes kub Routine Pending Results Patient Have Any Pending Studies at Discharge: No Discharge Instructions Given to Patient (Per Discharging Provider) You were treated for left sided kidney stones in your ureter Stent was placed to stabilize the stones and allow urine to drain past them Follow up with urology for definitive stone treatment and stent exchange - clinic should be calling you to schedule You can take acetaminophen as directed for stent pain and hydrocodone for more severe pain I recommend generally avoiding NSAIDS like ibuprofen or naproxen because they could cause you a kidney injury - an occasional dose is probably ok The urologist recommended tamsulosin (flomax) to help relax the smooth muscle in the urinary system and oxybutynin to prevent bladder spasm from the stent. Its ok to stop the oxybutynin if you are having any side effects or if you don't need it. Your blood pressure was very high in the ER - this was related to pain. Its still moderately elevated today. Monitor your blood pressure at home and follow up in primary care to see whether you would benefit from medicine to control high blood pressure. Your creatinine, which reflects kidney function, is elevated - It is improving after the stent however. Follow up in primary care for repeat labs in a few weeks to make sure it improves. If it remains significantly elevated you might benefit from seeing a service supervisor to check for chronic kidney disease. Seek medical attention if you have worsening pain, fever, inability to urinate. A little bit of blood in the urine (pink, no clots) can happen from stent irritation, however, call the urologist if you have a significant amount of urinary bleeding or clots It was a pleasure taking care of you in the hospital, Patt Gandhi MD Total Time Total Time Spent Total Time Spent (In Minutes): <30 Coding Level of Care Code 14958 IN/OBS DISCH 30 MIN/LESS Diagnoses Hydronephrosis, left N13.30 Kidney stones N20.0
== END 2024-07-30 12:10 | disposition home or self-care (01) | DRG 661 ==
LOC: ED 05:51 → 2N 12:48 → INTOOBSV 12:53 → SUATTDRO 12:53 → 2N 12:53

== ENCOUNTER 2024-08-25 08:57 | Inpatient (IN) ==
--- NOTE | 2024-08-25 09:56 | Emergency Department Note ---
Impression & Plan Fever, S/P ureteral stent placement, Leukocytosis, Acute left flank pain ED Provider Note ED Provider Note NAME: JC LUNA AGE:63 SEX: Male : 1960 ARRIVES VIA: Private vehicle INFORMANT: Patient ED PROVIDER(s): Yesenia oCrona DO CHIEF COMPLAINT: Fever and chills HPI: This is a 63-year-old male with a recent history of kidney stones and ureteral stent placement. He had stones and stent placement a few weeks ago and developed an infection that required a week of cipro. He states following the cipro and removal of the stent he was fine for a week. Then had stone and stent placement again. Saw urology Wednesday and had lithotripsy and stent placement. He states yesterday he began developing fevers and chills and mild left flank pain which feels similar to prior infection. Per prior instructions he removed stent this morning at home. He states he was having nausea/vomiting overnight into this morning. He was able to take tylenol this morning at 8am before coming it. PAST MEDICAL HISTORY:See Below PAST SURGICAL HISTORY:See Below FAMILY HISTORY:See Below SOCIAL HISTORY:See Below HOME MEDICATIONS:See Below ALLERGIES:See Below VITALS:See Below PHYSICAL EXAMINATION: GENERAL: alert, well appearing, well nourished, no distress, non-toxic EYE EXAM: normal conjunctiva, PERRL and EOM's grossly intact OROPHARYNX: no exudate, no erythema, lips, buccal mucosa, and tongue normal and mucous membranes are moist NECK: supple, no nuchal rigidity, no adenopathy, non-tender LUNGS: Clear to auscultation. Normal chest wall mechanics, no w/r/r HEART: no murmurs, S1 normal and S2 normal ABDOMEN: abdomen soft, non-tender, normo-active bowel sounds, no masses, no rebound or guarding. SKIN: no rashes, petechiae, orbruising UPPER EXTREMITIES: upper extremities are grossly normal. FROM, nml pulses b/l. LOWER EXTREMITIES: No pitting edema. FROM, nml pulses b/l. NEURO EXAM: Normal sensorium, cranial nerves II-XII grossly intact, normal speech, no facial droop,nogross weakness of arms, no gross weakness of legs. Gross sensation intact. No ataxia. Vital Signs: reviewed and remarkable Differential Diagnosis: ureterolithiasis, pyelo, uti, ureteral spasm, diverticulitis, colitis, sbo, perforation, ureteral mass, bladder stone, as well as others were considered MEDICAL DECISION MAKING: THis is a 63 yo male who presents to the ER with concern for fevers/chills and left flank pain after recent ureteral stent for stones. VS stable on arrival. Labs drawn and sent, IV established, EKG performed and interpreted at bedside, and patient placed on telemetry. He was started on IVF and given IV zofran, IV fentanyl, and started on IV rocephin. Cultures obtained and sent additionally. He was noted to have leukocytosis and mildly elevated procalcitonin. Case discussed with urology. Given recent instrumentation and increased risk of infectious complication, case discussed with hospitalist team additionally. Patient was initially started on maintenance rate IVF. AFter noting lab abnormalities, these were increased and 2nd IV started to achieve required 30 ml/kg of nss in consideration of evolving sepsis. Consultation(s): 1120: Discussed with Agata Hua, urology team. 1159: Discussed with Andreina and Dr. Damian, OR hospitalist team, for additional evaluation and mgmt. ER Treatment Provided: See below 1102: Patient now with recurrent vomiting. Diagnostics Interpreted By Me: -ECG: nsr at 104, nml axis, nml intervals, no acute ST/T wave changes -Cardiac Monitoring: An order was placed for continuous cardiac monitoring. The monitor shows a rate of 108 with sinus tachycardia rhythm. -Laboratory studies: As stated above and show below. -Imaging studies: CT a/p - no ureterolithiasis, no evidence of pyelo Triage Nursing Note Reviewed Prior/Outside Records Reviewed - urology note from Wednesday reviewed Past Med/Surg History Problem List (Updated 08/27/24 @ 15:53 by Yesenia Corona DO) Acute left flank pain (Acute) Leukocytosis (Acute) Hypertensive urgency Acute kidney injury superimposed on chronic kidney disease Sepsis S/P ureteral stent placement (Acute) Fever (Acute) Encounter for pre-operative examination Ureterolithiasis (Acute) Hydronephrosis, left (Acute) Right lower quadrant pain (Acute) Medical History Inguinal hernia present History of postoperative nausea and vomiting severe > "usually for several days afterward" DDD (degenerative disc disease), lumbar gabapentin for this History of COVID-19 2019 Kidney stone hx of and at present admitted to [facility] 07/29/24-07/30/24- s/p cysto/stent Severe hypertension - noted during 07/29/24 [facility] admission BP 200s/100s- treated with IV medications (per records "likely related to pain") - BP improved at discharge 07/30/24 but still elevated at [id number]- recommended monitoring BP at home and following up with PCP for possible medications Surgical History History of colonoscopy History of arthroscopy left knee ACL/MCL History of cystoscopy History of tonsillectomy S/P epidural steroid injection Social History Smoking Status: Never smoker Second Hand Exposure: No; Do You Dip or Chew Tobacco: No; Hx Alcohol Use: Yes Alcohol type: beer Hx Substance Use: Yes Last Used Substance: Unknown Substance Use Type Other:: medical card > gummy for back 2x per week Preferred Language: Slovak Communication Ability: Effective 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 Beliefs That Will Affect Care: None Current Living Situation: Spouse Feels Safe at Home: Yes Assistive Devices: None and Glasses Allergies Allergies Allergy/AdvReac Type Severity Reaction Status Date / Time Penicillins Allergy Hives Verified 08/25/24 11:22 Home Meds Home Medications Medication Instructions Recorded Confirmed gabapentin 100 mg capsule 100 mg PO HS 07/24/24 08/25/24 hydrocodone 5 mg-acetaminophen 325 0.5 tab PO DAILY PRN Pain 07/24/24 08/25/24 mg tablet triamcinolone acetonide 55 mcg 2 spray intranasal HS 07/29/24 08/25/24 nasal spray aerosol (Nasacort) Medical Marijuana 1 dose PO HS PRN Pain 08/21/24 08/25/24 acetaminophen 500 mg capsule 1,000 mg PO BID 08/21/24 08/25/24 tamsulosin 0.4 mg capsule (Flomax) 0.4 mg PO DAILY 08/21/24 08/25/24 Results & Data (ED) Vital Signs Vital Signs - 24 hr 08/25/24 09:06 08/25/24 09:37 08/25/24 10:39 Temperature 36.7 C 37.8 C H Temperature Source Skin Oral Pulse Rate 119 H Pulse Rate [Apical] 112 H 123 H Pulse Rhythm Regular Pulse Strength Normal Respiratory Rate 20 20 20 Respiratory Effort / Characteristics Non-Labored Non-Labored Non-Labored Respiratory Depth Normal Normal Normal Respiratory Pattern Regular Blood Pressure 180/100 H Blood Pressure [Right Arm] 161/112 H 157/101 H Blood Pressure Mean 126 Blood Pressure Mean [Right Arm] 128 119 Pulse Oximetry 96 96 95 Oxygen Delivery Method Room Air Room Air Room Air Sepsis Recent Fever Within 48 Hours No Sepsis New/Unexplained Change in Mental Status N/A Sepsis Action Taken by Nursing No Action Required Laboratory Data 08/27/24 08:45 08/27/24 08:45 Lab Results 08/25/24 08/25/24 08/25/24 Range/Units 09:20 11:26 11:30 WBC 14.39 H (4.8-10.8) K/ul RBC 4.29 L (4.70-6.10) M/uL Hgb 13.6 L (14.0-18.0) g/dl Hct 40.1 L (42.0-52.0) % MCV 93.5 (80.0-100.0) fL MCH 31.7 (25.0-34.0) pg MCHC 33.9 (32.0-36.0) g/dL RDW Std Deviation 44.1 (36.4-46.3) fL RDW Coeff of Mackenzie 13.0 (11.5-14.5) % Plt Count 377 (130-400) K/uL MPV 10.2 (9.4-12.4) fL Immature Gran % (Auto) 0.3 % Neut % (Auto) 80.3 % Lymph % (Auto) 12.2 % [place] % (Auto) 6.4 % Eos % (Auto) 0.5 % Baso % (Auto) 0.3 % Neut # (Auto) 11.56 H (1.40-6.50) K/uL Lymph # (Auto) 1.76 (1.20-3.40) K/uL Sweet [place] # (Auto) 0.92 H (0.11-0.59) K/uL Eos # (Auto) 0.07 (0.00-0.50) K/uL Baso # (Auto) 0.04 (0.00-0.20) K/uL Immature Gran # (Auto) 0.04 (0.01-0.20) K/uL PT 11.0 (9.0-12.0) Seconds INR 1.0 (0.9-1.1) Sodium 138 (136-145) mmol/L Potassium 4.0 (3.5-5.1) mmol/L Chloride 102 (98-107) mmol/L Carbon Dioxide 28 (21-32) mmol/L Anion Gap 8 (3-11) BUN 22 (6-23) mg/dl Creatinine 1.93 H (0.6-1.4) mg/dl Est Cr Clr Drug Dosing 32.5 ml/min eGFR 37.94 BUN/Creatinine Ratio 11.4 (10-20) Glucose 97 (70-99(Fasting)) mg/dl Lactate 1.4 (0.4-2.0) mmol/L Calcium 9.0 (8.6-10.3) mg/dl Magnesium 1.9 (1.7-2.4) mg/dl Total Bilirubin 0.5 (0.2-1.0) mg/dl AST 22 (13-39) U/L ALT 19 (7-52) U/L Alkaline Phosphatase 80 (34-104) U/L Total Protein 7.9 (6.0-8.3) gm/dl Albumin 4.2 (3.4-5.0) gm/dl Globulin 3.7 (2.5-4.0) gm/dl Albumin/Globulin Ratio 1.1 (0.9-2) Lipase 26 (11-82) U/L Procalcitonin 0.63 H (0-0.5) ng/ml Urine Color Yellow Urine Appearance Clear (Clear) Urine pH 6.5 (4.5-7.5) Ur Specific Wheeler 1.015 (1.000-1.030) Urine Protein 1+ H (Negative) Urine Glucose (UA) Negative (Negative) Urine Ketones Negative (Negative) Urine Blood 3+ H (Negative) Urine Nitrite Negative (Negative) Urine Bilirubin Negative (Negative) Urine Urobilinogen Negative (Negative) Ur Leukocyte Esterase Negative (Negative) Urine WBC (Auto) 11-20 H (0-5) /hpf Urine RBC (Auto) >20 H (0-2) /hpf U Hyaline Cast (Auto) 0-2 (0-2) /lpf U Epithel Cells (Auto) 0-2 (0-2) /hpf Urine Bacteria (Auto) None Seen (None Seen) Administered Medications Acetaminophen (Acetaminophen 325 Mg Tab) 650 mg PO Q4H PRN PRN Reason: Pain or Fever Stop: 09/24/24 14:23 Last Admin: 08/27/24 14:49 Dose: 650 mg Documented By: Admin: 08/27/24 07:27 Dose: 650 mg Documented By: Admin: 08/27/24 00:36 Dose: 650 mg Documented By: Admin: 08/26/24 19:26 Dose: 650 mg Documented By: Admin: 08/26/24 09:57 Dose: 650 mg Documented By: Admin: 08/26/24 03:52 Dose: 650 mg Documented By: Admin: 08/25/24 23:06 Dose: 650 mg Documented By: Admin: 08/25/24 17:45 Dose: 650 mg Documented By: AEUsman Enoxaparin Sodium (Enoxaparin Inj 30 Mg/0.3 Ml Syr) 30 mg SQ QAM COUNT INCLUDES THE [facility] Stop: 09/25/24 08:59 Last Admin: 08/27/24 09:20 Dose: 30 mg Documented By: AEUsman Admin: 08/26/24 09:51 Dose: 30 mg Documented By: MANUEL Fluticasone Propionate (Fluticasone Propionate Na Spr 16 Gm Btl) 2 sprays NA [facility] Stop: 09/24/24 20:59 Last Admin: 08/26/24 20:32 Dose: 2 sprays Documented By: Admin: 08/25/24 20:09 Dose: 2 sprays Documented By: ACO Gabapentin (Gabapentin 100 Mg Cap) 100 mg PO [facility] Stop: 09/24/24 20:59 Last Admin: 08/26/24 20:31 Dose: 100 mg Documented By: [facility] Admin: 08/25/24 20:10 Dose: 100 mg Documented By: FELIO Ceftriaxone Sodium (Rocephin) 2,000 mg in 50 mls @ 100 mls/hr IV Q24H [facility] Stop: 09/02/24 08:59 Last Infusion: 08/27/24 09:48 Dose: Infused Documented By: Admin: 08/27/24 09:18 Dose: 100 mls/hr Documented By: Infusion: 08/26/24 10:24 Dose: Infused Documented By: Admin: 08/26/24 09:54 Dose: 100 mls/hr Documented By: AEM Ondansetron HCl (Ondansetron Inj 2 Mg/Ml 2 Ml Vial) 4 mg IV Q6H PRN PRN Reason: Nausea Stop: 09/24/24 14:23 Last Admin: 08/25/24 17:51 Dose: 4 mg Documented By: AEM Oxycodone HCl (Oxycodone Hcl Ir 5 Mg Tab (Immediate Release)) 5 mg PO Q6 PRN PRN Reason: Pain Stop: 09/09/24 15:41 Last Admin: 08/26/24 16:05 Dose: 5 mg Documented By: MANUEL Tamsulosin HCl (Tamsulosin Hcl 0.4 Mg Cap) 0.4 mg PO HS [facility] Stop: 09/24/24 20:59 Last Admin: 08/26/24 20:31 Dose: 0.4 mg Documented By: Admin: 08/25/24 20:10 Dose: 0.4 mg Documented By: YAMINI Discontinued Medications Acetaminophen (Acetaminophen 325 Mg Tab) Confirm Administered Dose 650 mg .ROUTE .STK-MED ONE Stop: 08/25/24 13:44 Last Admin: 08/25/24 13:46 Dose: 650 mg Documented By: ALFONSO Acetaminophen (Acetaminophen 500 Mg Tab) 500 mg PO ONCE ONE Stop: 08/25/24 19:22 Last Admin: 08/25/24 19:34 Dose: 500 mg Documented By: YAMINI Fentanyl Citrate (Fentanyl Citrate Pf 100 Mcg/2 Ml Vial) 50 mcg IV Q15M PRN PRN Reason: Pain Stop: 09/08/24 11:01 Last Admin: 08/25/24 11:20 Dose: 50 mcg Documented By: ES Hydralazine HCl (Hydralazine Hcl 20 Mg/Ml Vial) 5 mg IV NOW ONE Stop: 08/25/24 12:28 Last Admin: 08/25/24 13:46 Dose: 5 mg Documented By: ES Sodium Chloride (Nss) 1,000 mls @ 999 mls/hr IV .Q1H1M ONE Stop: 08/25/24 10:57 Last Infusion: 08/25/24 11:36 Dose: Infused Documented By: Admin: 08/25/24 10:38 Dose: 999 mls/hr Documented By: ALFONSO Ceftriaxone Sodium (Rocephin) 2,000 mg in 50 mls @ 100 mls/hr IV NOW STA Stop: 08/25/24 11:49 Last Infusion: 08/25/24 12:49 Dose: Infused Documented By: Admin: 08/25/24 12:12 Dose: 100 mls/hr Documented By: ALFONSO Sodium Chloride (Nss) 1,000 mls @ 999 mls/hr IV .Q1H1M ONE Stop: 08/25/24 12:46 Last Infusion: 08/25/24 13:15 Dose: Infused Documented By: Admin: 08/25/24 12:12 Dose: 999 mls/hr Documented By: ALFONSO Lactated Ringer's (Lr) 1,000 mls @ 100 mls/hr IV .Q10H [facility] Stop: 08/26/24 14:23 Last Infusion: 08/26/24 20:11 Dose: Infused Documented By: Admin: 08/26/24 11:38 Dose: 100 mls/hr Documented By: Infusion: 08/26/24 11:38 Dose: Infused Documented By: Admin: 08/26/24 01:46 Dose: 100 mls/hr Documented By: Infusion: 08/26/24 01:46 Dose: Infused Documented By: Admin: 08/25/24 16:30 Dose: 100 mls/hr Documented By: MANUEL Magnesium Sulfate/Dextrose (Magnesium Sulfate / D5w) 1 gm in 100 mls @ 50 mls/hr IV Q2H [facility] Stop: 08/26/24 12:29 Last Infusion: 08/26/24 14:30 Dose: Infused Documented By: Admin: 08/26/24 12:30 Dose: 50 mls/hr Documented By: Infusion: 08/26/24 11:09 Dose: Infused Documented By: Admin: 08/26/24 09:09 Dose: 50 mls/hr Documented By: MANUEL Sodium Chloride (Nss) 1,000 mls @ 125 mls/hr IV .Q8H [facility]OD Stop: 08/27/24 14:29 Last Infusion: 08/27/24 14:49 Dose: Infused Documented By: Infusion: 08/27/24 12:15 Dose: 125 mls/hr Documented By: Infusion: 08/27/24 11:09 Dose: 0 mls/hr Documented By: Admin: 08/27/24 09:15 Dose: 125 mls/hr Documented By: Infusion: 08/27/24 09:15 Dose: Infused Documented By: Admin: 08/27/24 00:39 Dose: Not Given Documented By: Admin: 08/27/24 00:36 Dose: 125 mls/hr Documented By: Infusion: 08/26/24 23:24 Dose: Infused Documented By: Admin: 08/26/24 15:24 Dose: 125 mls/hr Documented By: MANUEL Ondansetron HCl (Ondansetron Inj 2 Mg/Ml 2 Ml Vial) Confirm Administered Dose 4 mg .ROUTE .STK-MED ONE Stop: 08/25/24 11:02 Last Admin: 08/25/24 11:20 Dose: Not Given Documented By: ALFONSO Ondansetron HCl (Ondansetron Inj 2 Mg/Ml 2 Ml Vial) 4 mg IV NOW STA Stop: 08/25/24 11:02 Last Admin: 08/25/24 11:20 Dose: 4 mg Documented By: ALFONSO Imaging Data Radiologist's Impression: Chest X-Ray 08/25/24 09:57 XR chest 1V portable CLINICAL HISTORY: sob COMPARISON STUDY: 07/24/2024 FINDINGS: Stable mild cardiomegaly without pulmonary vascular congestion. Inspiration is shallow. No effusion, consolidation, or pneumothorax. IMPRESSION: No acute findings. ACT 112: Negative or not required by law. Electronically signed by: Joe Olivarez M.D. 08/25/2024 10:32 AM Discharge Plan Visit Data Chief Complaint: Infection Stated Complaint: INFECTION FROM STENT ED Provider: Yesenia Corona Discharge Problem: Fever, S/P ureteral stent placement, Leukocytosis, Acute left flank pain Patient Disposition: Home - Self-Care Discharge Instructions Interventions: ED Discharge Assessment Last Done: 08/25/24 14:24
[2024-08-25 10:19] LABS: Basophils # (auto) 0.04 K/uL (0.00-0.20); Basophils % (auto) 0.3 %; Eosinophils # (auto) 0.07 K/uL (0.00-0.50); Eosinophils % (auto) 0.5 %; Hematocrit (blood only) 40.1 % (42.0-52.0); Hemoglobin 13.6 g/dl (14.0-18.0); Immature Granulocytes # (auto) 0.04 K/uL (0.01-0.20); Immature Granulocytes % (auto) 0.3 %; Lymphocytes # (auto) 1.76 K/uL (1.20-3.40); Lymphocytes % (auto) 12.2 %; Mean Corpuscular Hemoglobin 31.7 pg (25.0-34.0); Mean Corpuscular Hgb Conc 33.9 g/dL (32.0-36.0); Mean Corpuscular Volume 93.5 fL (80.0-100.0); Mean Platelet Volume 10.2 fL (9.4-12.4); Monocytes # (auto) 0.92 K/uL (0.11-0.59); Monocytes % (auto) 6.4 %; Neutrophils # (auto) 11.56 K/uL (1.40-6.50); Neutrophils % (auto) 80.3 %; Platelet Count 377 K/uL (130-400); RDW Standard Deviation 44.1 fL (36.4-46.3); Red Blood Count 4.29 M/uL (4.70-6.10); White Blood Count 14.39 K/ul (4.8-10.8)
--- NOTE | 2024-08-25 10:33 | XRay Report ---
XR chest 1V portable CLINICAL HISTORY: sob COMPARISON STUDY: 07/24/2024 FINDINGS: Stable mild cardiomegaly without pulmonary vascular congestion. Inspiration is shallow. No effusion, consolidation, or pneumothorax. IMPRESSION: No acute findings. ACT 112: Negative or not required by law. Electronically signed by: Joe Olivarez M.D. 08/25/2024 10:32 AM
[2024-08-25 10:34] LABS: Albumin Globulin Ratio 1.1 (0.9-2); Albumin Level 4.2 gm/dl (3.4-5.0); BUN Creatinine Ratio 11.4 (10-20); Bilirubin,Total 0.5 mg/dl (0.2-1.0); Creatinine Clr Calc Pharmacy 32.5 ml/min; Globulin 3.7 gm/dl (2.5-4.0); Magnesium 1.9 mg/dl (1.7-2.4); Total Protein 7.9 gm/dl (6.0-8.3)
[2024-08-25] MEDS: SODIUM CHLORIDE 0.9% 1,000 ML IV ONE ×2 (10:38→12:12)
[2024-08-25] MEDS: fentaNYL citrate PF 100 MCG/2 ML VIAL IV PRN (11:20)
[2024-08-25] MEDS: ONDANSETRON INJ 2 MG/ML 2 ML VIAL ONE (11:20)
[2024-08-25] MEDS: ONDANSETRON INJ 2 MG/ML 2 ML VIAL IV STA (11:20)
[2024-08-25 12:08] LABS: Appearance Urine Clear (Clear); Bacteria Urine Automated None Seen (None Seen); Bilirubin Urine Negative (Negative); Blood Urine 3+ (Negative); Cast Urine Automated 0-2 /lpf (0-2); Color Urine Yellow; Epithelial Cell Urine Auto 0-2 /hpf (0-2); Glucose Urine UA Negative (Negative); Ketones Urine Negative (Negative); Leukocyte Esterase Urine Negative (Negative); Nitrite Urine Negative (Negative); Protein Urine 1+ (Negative); RBC Urine Automated >20 /hpf (0-2); Specific Gravity Urine 1.015 (1.000-1.030); Urobilinogen Urine Negative (Negative); pH Urine 6.5 (4.5-7.5)
[2024-08-25] MEDS: cefTRIAXone SODIUM 2,000 MG/50 ML BAG IV STA (12:12)
--- NOTE | 2024-08-25 12:33 | Electrocardiogram Report ---
Test Reason : Blood Pressure : */* mmHG Vent. Rate : 125 BPM Atrial Rate : 125 BPM P-R Int : 184 ms QRS Dur : 60 ms QT Int : 280 ms P-R-T Axes : 39 39 43 degrees QTcB Int : 404 ms Sinus tachycardia Abnormal ECG When compared with ECG of 24-Jul-2024 07:32, Vent. rate has increased by 44 bpm Confirmed by Kevin Easton ([id number]) on 08/25/2024 12:32:39 PM Referred By: REFERRED SELF Confirmed By: Kevin Easton
--- NOTE | 2024-08-25 12:34 | CT Scan Report ---
ABDOMEN AND PELVIS CT WITHOUT CONTRAST CT DOSE: 605.93 mGy.cm HISTORY: Acute fever with kidney stones and history of ureteral stents fever, s/p ureteral stent, re cent stones TECHNIQUE: Multiaxial CT images of the abdomen and pelvis were performed without contrast. A dose lo wering technique was utilized adhering to the principles of ALARA. COMPARISON STUDY: CT 07/29/2024 FINDINGS: Cardiomegaly. Mild bibasilar atelectasis. No pneumatosis or pneumoperitoneum. Unremarkable spleen, pancreas and adrenal glands. Distended gallbladder. Unremarkable liver. Bilateral renal vascu lar calcifications. Nonobstructing calculi in the right kidney measure up to 5 mm. Resolution of the previously described left-sided hydronephrosis. There is also decreased perinephric and pararenal inf lammatory stranding. No ureteral calculi are present on today's study. Nonobstructing left renal calc murali measuring up to approximately 4 mm. Partial distention of the urinary bladder with wall thickenin g and trace intraluminal air. Prostamegaly. No lymphadenopathy. Tiny hiatal hernia. Colonic diverticulosis. Prior left-sided hernia repair. Moder ate fecal retention. Small fat filled umbilical hernia. A small right inguinal hernia contains mesent patricia fat and nonobstructed loop of bowel. Degenerative changes of the spine, pelvis and hips. Normal appendix. Lumbar levoscoliosis. Chronic L5 pars defects. IMPRESSION: 1. Nonobstructing bilateral nephrolithiasis. No ureteral calculi or hydronephrosis on today's exam. 2. Resolving left-sided perinephric and perirenal stranding compared to the prior study. 3. Urinary bladder wall thickening with partial distention. Correlate with urinalysis. 4. Colonic diverticulosis without acute diverticulitis. 5. Additional findings as above. ACT 112: Negative or not required by law. The above report was generated using voice recognition software. It may contain grammatical, syntax o r spelling errors. Electronically signed by: Darryl Tellez M.D. 08/25/2024 12:32 PM
--- NOTE | 2024-08-25 12:36 | History & Physical Report ---
Date of Service August 25, 2024 Assessment & Plan (1) Sepsis: Plan: Acute sepsis syndrome with source (tachycardia, leukocytosis) - Admit to med/tele - Diet regular - VS per unit protocol - Lactate 1.4 and pt is actually hypertensive, not hypotensive - Received 2L of NSS in ER - Transition to LR at 100 ml/hr - Continue ceftriaxone 2g IV daily - UA with WBCs and blood, no leukocyte esterase, nitrites, or bacteria - Urine culture and blood cultures ordered/pending - CTAP w/o contrast obtained and pending, multiple stones noted bilaterally on my review (2) Ureterolithiasis: Plan: Acute on chronic - Consult urology stat, appreciate assistance - Continue flomax - Continue hydrocodone-apap for pain, increase to 1 tab q6 prn mod pain - Added morphine 4mg IV q4 prn severe pain (3) Acute kidney injury superimposed on chronic kidney disease: Plan: Acute - Likely component of ATN related to recent FQ use (cipro) - Avoid nephrotoxic agents - Review of records indicate a baseline over the past month of 1.6-1.9 - Hydrate as noted above - Trend renal fxn with BMP in AM (4) Hypertensive urgency: Plan: Acute - Multifactorial with infection + pain - Dose of IV hydralazine 5mg x1 now - Follow BP Plan DVT ppx - Lovenox 30mg sq daily Plan has been discussed with Dr. Damian who will also see and evaluate this patient. Further orders to be implemented as clinically warranted by attending. History of Present Illness Chief Complaint: Fever and chills Primary Care Provider: [facility] PCP Nabeel 63 yo M with pmhx of recurrent calculi dating back to his 20s and CKD who presents to the ER today c/o fever, chills, n/v that started around 4pm yesterday. Patient reports a history of multiple kidney stones bilaterally and about 3 weeks ago he developed sepsis syndrome while in [place] and was hospitalized and treated with Cipro. He was discharged on a course of Cipro that he completed. He then reports undergoing left ureteral stent placement on Wednesday with Dr. Henderson and was instructed to remove the stent this morning. Yesterday, around 4pm he developed abrupt onset fever and chills and he proceeded to have n/v all evening. He also endorses some hematuria and dysuria as well as right sided flank pain. He presented to the ER today, where he is noted to have a low grade fever of 37.8C (but did premedicate with APAP prior to coming in) and also a WBC of 14,390 with neutrophilic predominance. He also has a creat of 1.93 which he reports having a baseline creatinine of ~1.4-1.6. He does follow with a senior linux engineer. His PCT is mildly elevated at 0.63. He BP is actually accelerated and he denies having a h/o HTN and he is tachycardic. He has received 2L of NSS and 2g IV ceftriaxone. Urology has been consulted and he has been referred to hospital medicine team for admission. CTAP ordered w/o contrast and results are pending radiologist read. Allergies Allergy/AdvReac Type Severity Reaction Status Date / Time Penicillins Allergy Hives Verified 08/25/24 11:22 Home Medications Medication Instructions Recorded Confirmed Type gabapentin 100 mg capsule 100 mg PO HS 07/24/24 08/25/24 History hydrocodone 5 mg-acetaminophen 325 0.5 tab PO DAILY PRN Pain 07/24/24 08/25/24 History mg tablet triamcinolone acetonide 55 mcg 2 spray intranasal HS 07/29/24 08/25/24 History nasal spray aerosol (Nasacort) Medical Marijuana 1 dose PO HS PRN Pain 08/21/24 08/25/24 History acetaminophen 500 mg capsule 1,000 mg PO BID 08/21/24 08/25/24 History tamsulosin 0.4 mg capsule (Flomax) 0.4 mg PO DAILY 08/21/24 08/25/24 History Past Med/Surg History Problem List (Updated 08/25/24 @ 12:29 by Andreina Mcintyre PA-C) Hypertensive urgency Acute kidney injury superimposed on chronic kidney disease Sepsis S/P ureteral stent placement (Acute) Fever (Acute) Encounter for pre-operative examination Ureterolithiasis (Acute) Hydronephrosis, left (Acute) Right lower quadrant pain (Acute) Medical History (Updated 08/25/24 @ 12:29 by Andreina Mcintyre PA-C) Inguinal hernia present History of postoperative nausea and vomiting severe > "usually for several days afterward" DDD (degenerative disc disease), lumbar gabapentin for this History of COVID-19 2019 Kidney stone hx of and at present admitted to [facility] 07/29/24-07/30/24- s/p cysto/stent Severe hypertension - noted during 07/29/24 [facility] admission BP 200s/100s- treated with IV medications (per records "likely related to pain") - BP improved at discharge 07/30/24 but still elevated at [id number] recommended monitoring BP at home and following up with PCP for possible medications Surgical History (Updated 08/25/24 @ 10:46 by Yesenia Corona DO) History of colonoscopy History of arthroscopy left knee ACL/MCL History of cystoscopy History of tonsillectomy S/P epidural steroid injection Social History Smoking Status: Never smoker Second Hand Exposure: No; Do You Dip or Chew Tobacco: No; Hx Alcohol Use: Yes Alcohol type: beer Hx Substance Use: Yes Substance Use Type Other:: medical card > gummy for back 2x per week Preferred Language: Kyrgyz Communication Ability: Effective Yardage Caller Required: No Beliefs That Will Affect Care: None Current Living Situation: Spouse Feels Safe at Home: Yes Assistive Devices: Glasses Review of Systems 2 Review of Systems: All systems reviewed and are unremarkable except as noted in HPI and below. Denies fever, chills, fatigue, headache, nasal congestion, sore throat, cough, chest pain, shortness of breath, palpitations, orthopnea, PND, abdominal pain, diarrhea, constipation, frequency, joint pain or swelling, easy bruising or bleeding, skin lesions or rashes. Physical Exam 2 Physical Exam: GENERAL: 63 yo well-nourished WM. Awake, alert, no distress. EYES: EOMI. PERRLA. Anicteric. HENT: Moist mucous membranes. No cervical lymphadenopathy. LUNGS: Clear to auscultation bilaterally. No accessory muscle use. No W/R/R. CARDIOVASCULAR: Sinus tachycardia w/o ectopy, no murmurs ABDOMEN: Soft, non-tender and non-distended. No palpable masses. BS normoactive x 4 quad. +CVA tenderness on the left. EXTREMITIES: No edema. Non-tender. Peripheral pulses +2/4. NEUROLOGIC: A&O x3. No focal neurological deficits. CN II-XII grossly intact. PSYCHIATRIC: Cooperative. Appropriate mood and affect. SKIN: Warm, dry, intact. No rashes or lesions. Results & Data Results & Data Vital Signs (Past 12 Hours) Vital Signs Temp Pulse Pulse Resp BP BP Pulse Ox 08/25/24 10:39 37.8 C H 123 H 20 157/101 H 95 08/25/24 09:37 112 H 20 161/112 H 96 08/25/24 09:06 36.7 C 119 H 20 180/100 H 96 O2 Del Method 08/25/24 10:39 Room Air 08/25/24 09:37 Room Air 08/25/24 09:06 Room Air Laboratory Results 08/25/24 09:20 08/25/24 09:20 Diagnostic Findings Chest X-Ray 08/25/24 09:57 XR chest 1V portable CLINICAL HISTORY: sob COMPARISON STUDY: 07/24/2024 FINDINGS: Stable mild cardiomegaly without pulmonary vascular congestion. Inspiration is shallow. No effusion, consolidation, or pneumothorax. IMPRESSION: No acute findings. ACT 112: Negative or not required by law. Electronically signed by: Joe Olivarez M.D. 08/25/2024 10:32 AM Code Status & VTE Plan Code Status Full code - d/w patient at bedside VTE Prophylaxis Plan VTE Prophylaxis will be ordered: Yes PG Care Time/CCT Total # of Minutes Spent Total Time Spent with Patient: Total time spent is greater than 50% in coordination of care (as documented) at patient's floor/unit and/or counseling patient: 77 minutes Coding Level of Care Code 12349 INT INP/OBS CARE 375MIN Diagnoses Sepsis A41.9 Ureterolithiasis N20.1 Acute kidney injury superimposed on chronic kidney disease N17.9; N18.9 Hypertensive urgency I16.0
--- NOTE | 2024-08-25 13:08 | Urology Consultation ---
Date of Consultation August 25, 2024 Assessment & Plan (1) Sepsis: (2) Fever: 63-year-old male recently status post left ureteroscopy and stone treatment admitted for fever and sepsis. Patient s/p stone treatment on 08/23, removed his left ureteral stent this morning per post op instructions Patient reports fever and chills at home since yesterday afternoon; Tmax in the ED is 37.8, tachycardic Labs reviewedcreatinine 1.93, WBC 14.39 Urinalysis on arrival was not suggestive of infection Urine and blood cultures are pending Continue with broad-spectrum antibiotics and follow cultures, narrow per sensitivity data when available CT imaging reviewedbilateral nephrolithiasis, no ureteral calculi or hyd ronephrosis No acute intervention at this time Can consider replacement of left ureteral stent if he has intractable pain or clinical worsening For now, recommend continue with conservative management with IV fluids and antibiotics Continue supportive care, antibiotics and medical management per medicine service will follow, please contact us with any additional questions, concerns or changes in clinical status History of Present Illness Reason for Consultation: kidney stones, recent stent placement Requesting Physician: Dr. Corona History of Present Illness This is a 63-year-old male who follows with urology for longstanding history of bilateral nephrolithiasis. He is status post cystoscopy, left ureteroscopy, stone treatment and left ureteral stent exchange on 08/23/[address] Henderson. He presented to the emergency department today for evaluation of fever, chills, nausea and vomiting which started yesterday afternoon. He removed his tethered ureteral stent as directed this morning. He presented to the emergency department for further evaluation of his symptoms. On arrival to ED, he was afebrile, tachycardic and hypertensive. Lab work showed leukocytosis of 14.39, hemoglobin 13.6, creatinine 1.93. Procalcitonin 0.63. Urinalysis showed 3+ blood, 11-20 WBC, >20 RBC and negative for bacteria. Urine and blood cultures collected and pending. He was treated with IV fluids and Ceftriaxone. He was admitted to the hospital medicine service for sepsis. Urology is consulted for kidney stones, recent stent placement. CT abdomen pelvis without contrast showed nonobstructing bilateral nephr olithiasis. No ureteral calculi or hydronephrosis on exam today. Resolving left-sided perinephric and perirenal stranding compared to the prior study. Patient seen and examined in the emergency department. He is awake and resting in litter. He reports fever and chills started at 4 PM yesterday and then he developed nausea and vomiting overnight. He removed his stent this morning per postop instructions. Currently feeling much better since arrival. Reports minimal pain at present. He is voiding spontaneously, mild dysuria. No hematuria. Nausea at present, no vomiting. Reports he feels like he has a fever at present, no chills. Allergies Allergy/AdvReac Type Severity Reaction Status Date / Time Penicillins Allergy Hives Verified 08/25/24 11:22 Home Medications Medication Instructions Recorded Confirmed Type gabapentin 100 mg capsule 100 mg PO HS 07/24/24 08/25/24 History hydrocodone 5 mg-acetaminophen 325 0.5 tab PO DAILY PRN Pain 07/24/24 08/25/24 History mg tablet triamcinolone acetonide 55 mcg 2 spray intranasal HS 07/29/24 08/25/24 History nasal spray aerosol (Nasacort) Medical Marijuana 1 dose PO HS PRN Pain 08/21/24 08/25/24 History acetaminophen 500 mg capsule 1,000 mg PO BID 08/21/24 08/25/24 History tamsulosin 0.4 mg capsule (Flomax) 0.4 mg PO DAILY 08/21/24 08/25/24 History Patient History Medical History Inguinal hernia present History of postoperative nausea and vomiting severe > "usually for several days afterward" DDD (degenerative disc disease), lumbar gabapentin for this History of COVID-19 2019 Kidney stone hx of and at present admitted to [facility] 07/29/24-07/30/24- s/p cysto/stent Severe hypertension - noted during 07/29/24 [facility] admission BP 200s/100s- treated with IV medications (per records "likely related to pain") - BP improved at discharge 07/30/24 but still elevated at [id number]- recommended monitoring BP at home and following up with PCP for possible medi cations Surgical History History of colonoscopy History of arthroscopy left knee ACL/MCL History of cystoscopy History of tonsillectomy S/P epidural steroid injection Social History Smoking Status: Never smoker Second Hand Exposure: No; Do You Dip or Chew Tobacco: No; Hx Alcohol Use: Yes Alcohol type: beer Hx Substance Use: Yes Substance Use Type Other:: medical card > gummy for back 2x per week Preferred Language: Upper Sorbian Communication Ability: Effective Accounting Machine Operator Required: No Beliefs That Will Affect Care: None Current Living Situation: Spouse Feels Safe at Home: Yes Assistive Devices: Glasses Review of Systems Review of Systems: All systems reviewed & are unremarkable except as noted in HPI & below Physical Exam Constitutional: no acute distress Respiratory: no respiratory distress and no labored breathing Cardiovascular: Rate/Rhythm: + tachycardic Musculoskeletal: Head/Neck/Chest: normocephalic Neurologic: moves all extremities and awake Psychiatric: Orientation: alert and oriented x 3 Results & Data Vital Signs (Past 12 Hours) Vital Signs Temp Pulse Pulse Resp BP BP Pulse Ox 08/25/24 12:14 124 H 20 165/110 H 98 08/25/24 10:39 37.8 C H 123 H 20 157/101 H 95 08/25/24 09:37 112 H 20 161/112 H 96 08/25/24 09:06 36.7 C 119 H 20 180/100 H 96 O2 Del Method 08/25/24 12:14 Room Air 08/25/24 10:39 Room Air 08/25/24 09:37 Room Air 08/25/24 09:06 Room Air PG Care Time/CCT Total # of Minutes Spent Total Time Spent with Patient: Total time spent is greater than 50% in coordination of care (as documented) at patient's floor/unit and/or counseling patient: Coding Level of Care Code 93087 IN/OBS CONSULT LVL 4,60M Diagnoses Sepsis A41.9 Fever R50.9
[2024-08-25] MEDS: ACETAMINOPHEN 325 MG TAB ONE (13:46)
[2024-08-25] MEDS: hydrALAZINE HCL 20 MG/ML VIAL IV ONE (13:46)
[2024-08-25] MEDS ORDERED: POLYETHYLENE (MIRALAX) 17 GM PACK PO PRN (14:24)
[2024-08-25] MEDS ORDERED: HYDROCODONE/ACETAMOPHEN 5/325MG TAB PO PRN (14:24)
[2024-08-25] MEDS ORDERED: ALUMINUM/MAGNESIUM SUSP 30 ML UDC PO PRN (14:24)
[2024-08-25] MEDS ORDERED: MoRPHine SULFATE 4 MG/ML 1 ML CARP\\VIAL IV PRN (14:24)
[2024-08-25] MEDS ORDERED: MAGNESIUM HYDROXIDE SUSP 30 ML UDC PO PRN (14:24)
[2024-08-25] MEDS: LACTATED RINGER'S 1,000 ML IV SCH (16:30)
[2024-08-25] MEDS: ACETAMINOPHEN 325 MG TAB PO PRN (17:45)
[2024-08-25] MEDS: ONDANSETRON INJ 2 MG/ML 2 ML VIAL IV PRN (17:51)
[2024-08-25] MEDS: ACETAMINOPHEN 500 MG TAB PO ONE (19:34)
[2024-08-25] MEDS: FLUTICASONE PROPIONATE NA SPR 16 GM BTL SCH (20:09)
[2024-08-25] MEDS: TAMSULOSIN HCL 0.4 MG CAP PO SCH (20:10)
[2024-08-25] MEDS: GABAPENTIN 100 MG CAP PO SCH (20:10)
[2024-08-26 07:32] LABS: Basophils # (auto) 0.06 K/uL (0.00-0.20); Basophils % (auto) 0.4 %; Eosinophils # (auto) 0.02 K/uL (0.00-0.50); Eosinophils % (auto) 0.1 %; Hematocrit (blood only) 33.8 % (42.0-52.0); Hemoglobin 11.5 g/dl (14.0-18.0); Immature Granulocytes # (auto) 0.09 K/uL (0.01-0.20); Immature Granulocytes % (auto) 0.6 %; Lymphocytes # (auto) 1.07 K/uL (1.20-3.40); Lymphocytes % (auto) 6.7 %; Mean Corpuscular Hemoglobin 31.7 pg (25.0-34.0); Mean Corpuscular Volume 93.1 fL (80.0-100.0); Mean Platelet Volume 10.1 fL (9.4-12.4); Monocytes # (auto) 1.25 K/uL (0.11-0.59); Monocytes % (auto) 7.9 %; Neutrophils # (auto) 13.39 K/uL (1.40-6.50); Neutrophils % (auto) 84.3 %; Platelet Count 253 K/uL (130-400); RDW Coefficient of Variation 12.8 % (11.5-14.5); RDW Standard Deviation 43.8 fL (36.4-46.3); Red Blood Count 3.63 M/uL (4.70-6.10); White Blood Count 15.88 K/ul (4.8-10.8)
[2024-08-26 07:39] LABS: BUN Creatinine Ratio 10.1 (10-20); Calcium 7.9 mg/dl (8.6-10.3); Creatinine Clr Calc Pharmacy 33.7 ml/min; Magnesium 1.6 mg/dl (1.7-2.4); Potassium 4.2 mmol/L (3.5-5.1)
[2024-08-26] MEDS: MAGNESIUM SULFATE / D5W 1 GM/100 ML BAG IV SCH (09:09)
--- NOTE | 2024-08-26 09:34 | Urology Progress Note ---
Date of Service August 26, 2024 Assessment & Plan (1) Ureterolithiasis: (2) Hydronephrosis, left: Plan Fevers after recent ureteroscopy and subsequent stent removal yesterday CT personally reviewed and evaluated He does have some dilation of the left ureter but it is not excessive and I think it is very much in line with expectations after stent placement. When the stent is in position there is passive dilation of the ureter and some loss of peristalsis temporarily He does not have severe hydro that would imply underlying obstruction I discussed this with him I think he can safely be managed conservatively with antibiotics and IV fluids. I discussed that if I placed a stent currently I do not believe it will likely shorten his recovery course or alter the long-term recovery. That said, if he begins to become hemodynamically compromised, I would consider it as a pure precaution. He is very understanding of the situation and in agreement Currently receiving ceftriaxone which seems reasonable I will continue to follow while inpatient Admission and Anticipated Discharge Date Admission Date: August 25, 2024 Subjective Febrile to 39.7 overnight Afebrile now Was tachycardic overnight but currently with a heart rate of 87 His blood pressure is stable He subjectively feels okay He did have chills during his fever episodes for the past 24 hours He is not experiencing flank pain or abdominal pain His creatinine is stable at 1.89near baseline Physical Exam Physical Exam: Comfortable appearing Abdomen soft, no superior CVA tenderness on the right or the left No suprapubic tenderness Results & Data Vital Signs (Past 12 Hours) Vital Signs Temp Pulse Pulse Resp BP Pulse Ox O2 Del Method 08/26/24 08:16 37.3 C 87 17 145/88 H 98 Room Air 08/26/24 05:45 36.9 C 08/26/24 03:50 39.4 C H 110 H 18 166/83 H 92 Room Air 08/26/24 00:47 37.9 C H 08/25/24 22:56 39.4 C H 106 H 18 150/78 H 98 Room Air 08/25/24 21:42 90 PG Care Time/CCT Total # of Minutes Spent Total Time Spent with Patient: Total time spent is greater than 50% in coordination of care (as documented) at patient's floor/unit and/or counseling patient: Coding Level of Care Code 43532 SUB INP/OBS CARE 2/35MIN Diagnoses Ureterolithiasis N20.1 Hydronephrosis, left N13.30
[2024-08-26] MEDS: ENOXAPARIN INJ 30 MG/0.3 ML SYR SQ SCH (09:51)
[2024-08-26] MEDS: cefTRIAXone SODIUM 2,000 MG/50 ML BAG IV SCH (09:54)
--- NOTE | 2024-08-26 14:19 | Hospitalist Progress Note ---
Date of Service August 26, 2024 Assessment & Plan (1) Sepsis: Plan: Acute sepsis syndrome with source (tachycardia, leukocytosis) - Admit to med/tele - Diet regular - VS per unit protocol - Lactate 1.4 and pt is actually hypertensive, not hypotensive - Received normal saline since admission Follow urine and blood culture results - Continue ceftriaxone 2g IV daily - UA with WBCs and blood, no leukocyte esterase, nitrites, or bacteria - Urine culture and blood cultures ordered/pending - CTAP w/o contrast obtained. Results reviewed. Leukocytosis was not improved yet. White count is still elevated in the 15,000's range. (2) Ureterolithiasis: Plan: Acute on chronic Urology involved. Recommends conservative approach and no acute intervention at this time. Continue to treat with IV antibiotics and IV fluids. - Continue flomax - Continue hydrocodone-apap for pain - Added morphine 4mg IV q4 prn severe pain (3) Acute kidney injury superimposed on chronic kidney disease: Plan: Acute - Likely component of ATN related to recent FQ use (cipro) - Avoid nephrotoxic agents - Review of records indicate a baseline over the past month of 1.6-1.9 - Hydrate as noted above - Trend renal fxn with BMP in AM Creatinine still elevated at 1.8 with no significant improvement yet (4) Hypertensive urgency: Plan: Acute - Multifactorial with infection + pain -Currently normotensive - Follow BP Plan DVT ppx - Lovenox 30mg sq daily Admission and Anticipated Discharge Date Admission Date: August 25, 2024 Subjective Patient was seen and examined at 10:20 AM. He was accompanied by his at the bedside. He states that he is feeling better compared to when he first came. Review of Systems Review of Systems: All systems reviewed & are unremarkable except as noted in Subjective Physical Exam Physical Exam: General: Awake, conversant Heart: S1, S2/regular rate and rhythm, no murmur rubs or gallops Lungs: Clear to auscultation bilaterally. Normal effort Abdomen: Soft/nontender/nondistended. No hepatosplenomegaly. Left CVA tenderness noted. Extremities: No clubbing/cyanosis. No edema Behavior: Appropriate, cooperative Results & Data Results & Data Vital Signs (Past 12 Hours) Vital Signs Temp Pulse Pulse Resp BP Pulse Ox O2 Del Method 08/26/24 13:00 91 H 08/26/24 11:50 37.7 C H 97 H 18 106/70 94 Room Air 08/26/24 08:16 37.3 C 87 17 145/88 H 98 Room Air 08/26/24 05:45 36.9 C 08/26/24 03:50 39.4 C H 110 H 18 166/83 H 92 Room Air Laboratory Results Abnormal lab results 08/26/24 Range/Units 06:22 WBC 15.88 H (4.8-10.8) K/ul RBC 3.63 L (4.70-6.10) M/uL Hgb 11.5 L (14.0-18.0) g/dl Hct 33.8 L (42.0-52.0) % Neut # (Auto) 13.39 H (1.40-6.50) K/uL Lymph # (Auto) 1.07 L (1.20-3.40) K/uL Dundy # (Auto) 1.25 H (0.11-0.59) K/uL Sodium 134 L (136-145) mmol/L Creatinine 1.89 H (0.6-1.4) mg/dl Calcium 7.9 L (8.6-10.3) mg/dl Magnesium 1.6 L (1.7-2.4) mg/dl PG Care Time/CCT Total # of Minutes Spent Total Time Spent with Patient: Total time spent is greater than 50% in coordination of care (as documented) at patient's floor/unit and/or counseling patient: Coding Level of Care Code 08890 SUB INP/OBS CARE 2/35MIN Diagnoses Sepsis A41.9 Ureterolithiasis N20.1 Acute kidney injury superimposed on chronic kidney disease N17.9; N18.9 Hypertensive urgency I16.0
[2024-08-26] MEDS: SODIUM CHLORIDE 0.9% 1,000 ML IV SCH (15:24)
[2024-08-26] MEDS: oxyCODONE HCL IR 5 MG TAB (IMMEDIATE RELEASE) PO PRN (16:05)
[2024-08-27 09:07] LABS: Hematocrit (blood only) 37.3 % (42.0-52.0); Hemoglobin 12.4 g/dl (14.0-18.0); Mean Corpuscular Hemoglobin 30.9 pg (25.0-34.0); Mean Corpuscular Hgb Conc 33.2 g/dL (32.0-36.0); Mean Platelet Volume 9.9 fL (9.4-12.4); Platelet Count 232 K/uL (130-400); RDW Coefficient of Variation 12.9 % (11.5-14.5); RDW Standard Deviation 43.8 fL (36.4-46.3); Red Blood Count 4.01 M/uL (4.70-6.10); White Blood Count 12.98 K/ul (4.8-10.8)
[2024-08-27 09:23] LABS: BUN Creatinine Ratio 13.1 (10-20); Calcium 8.7 mg/dl (8.6-10.3); Creatinine Clr Calc Pharmacy 39.9 ml/min; Potassium 3.8 mmol/L (3.5-5.1)
--- NOTE | 2024-08-27 11:05 | Urology Progress Note ---
Date of Service August 27, 2024 Assessment & Plan (1) Acute kidney injury superimposed on chronic kidney disease: (2) S/P ureteral stent placement: Plan Improving Continue antibiotics I anticipate a level waxing waning temperature cycle over the next several days He is likely stable for discharge home now with antibiotic management moving forward, treat for a total of 10 days Creatinine at 1.6 is back to baseline or slightly better than his traditional baseline White blood cell count is improving Subjectively much better Admission and Anticipated Discharge Date Admission Date: August 25, 2024 Subjective Still with transient temperature spike overnight but otherwise feeling much better today No flank pain Anxious to go home Physical Exam Constitutional: well developed and well nourished Respiratory: no respiratory distress Cardiovascular: Extremities: no pedal edema Gastrointestinal (Abdomen): Inspection/Auscultation: abdomen normal to inspection Results & Data Vital Signs (Past 12 Hours) Vital Signs Temp Pulse Resp BP Pulse Ox O2 Del Method 08/27/24 07:20 36.8 C 79 18 148/87 H 98 Room Air 08/27/24 04:27 36.5 C 69 18 116/69 97 Room Air 08/26/24 22:05 36.6 C 76 16 122/79 94 Room Air PG Care Time/CCT Total # of Minutes Spent Total Time Spent with Patient: Total time spent is greater than 50% in coordination of care (as documented) at patient's floor/unit and/or counseling patient: Coding Level of Care Code 09065 SUB INP/OBS CARE 2/35MIN Diagnoses Acute kidney injury superimposed on chronic kidney disease N17.9; N18.9 S/P ureteral stent placement Z96.0
--- NOTE | 2024-08-27 14:55 | Hospitalist Progress Note ---
Date of Service August 27, 2024 Assessment & Plan (1) Sepsis: Plan: Acute sepsis syndrome with source (tachycardia, leukocytosis) - Admit to med/tele - Diet regular - VS per unit protocol - Lactate 1.4 and pt is actually hypertensive, not hypotensive - Received normal saline since admission Blood culture and urine culture so far negative - Continue ceftriaxone 2g IV daily - UA with WBCs and blood, no leukocyte esterase, nitrites, or bacteria - Urine culture and blood cultures ordered/pending - CTAP w/o contrast obtained. Results reviewed. Leukocytosis improved down from 15,000-12,000 Patient is feeling better clinically (2) Ureterolithiasis: Plan: Acute on chronic Urology involved. Recommends conservative approach and no acute intervention at this time. Continue to treat with IV antibiotics and IV fluids. - Continue flomax - Continue hydrocodone-apap for pain - Added morphine 4mg IV q4 prn severe pain (3) Acute kidney injury superimposed on chronic kidney disease: Plan: Acute - Likely component of ATN related to recent FQ use (cipro) - Avoid nephrotoxic agents - Review of records indicate a baseline over the past month of 1.6-1.9 - Hydrate as noted above - Trend renal fxn with BMP in AM Creatinine improved to 1.5 from 1.8 (4) Hypertensive urgency: Plan: Acute - Multifactorial with infection + pain -Currently normotensive - Follow BP Plan DVT ppx - Lovenox 30mg sq daily Admission and Anticipated Discharge Date Admission Date: August 25, 2024 Subjective Patient was seen and examined at 10:50 AM. He states that he feels better overall. Review of Systems Review of Systems: All systems reviewed & are unremarkable except as noted in Subjective Physical Exam Physical Exam: General: Awake, conversant Heart: S1, S2/regular rate and rhythm, no murmur rubs or gallops Lungs: Clear to auscultation bilaterally. Normal effort Abdomen: Soft/nontender/nondistended. No hepatosplenomegaly. Left CVA tenderness resolved. Extremities: No clubbing/cyanosis. No edema Behavior: Appropriate, cooperative Results & Data Results & Data Vital Signs (Past 12 Hours) Vital Signs Temp Pulse Pulse Resp BP Pulse Ox O2 Del Method 08/27/24 13:00 86 08/27/24 11:52 36.8 C 75 18 131/79 97 Room Air 08/27/24 07:20 36.8 C 79 18 148/87 H 98 Room Air 08/27/24 04:27 36.5 C 69 18 116/69 97 Room Air Laboratory Results Abnormal lab results 08/27/24 Range/Units 08:45 WBC 12.98 H (4.8-10.8) K/ul RBC 4.01 L (4.70-6.10) M/uL Hgb 12.4 L (14.0-18.0) g/dl Hct 37.3 L (42.0-52.0) % Creatinine 1.60 H (0.6-1.4) mg/dl PG Care Time/CCT Total # of Minutes Spent Total Time Spent with Patient: Total time spent is greater than 50% in coordination of care (as documented) at patient's floor/unit and/or counseling patient: Coding Level of Care Code 32403 SUB INP/OBS CARE 235MIN Diagnoses Sepsis A41.9 Ureterolithiasis N20.1 Acute kidney injury superimposed on chronic kidney disease N17.9; N18.9 Hypertensive urgency I16.0
[2024-08-28 07:01] LABS: Hematocrit (blood only) 32.8 % (42.0-52.0); Hemoglobin 11.1 g/dl (14.0-18.0); Mean Corpuscular Hemoglobin 31.2 pg (25.0-34.0); Mean Corpuscular Hgb Conc 33.8 g/dL (32.0-36.0); Mean Corpuscular Volume 92.1 fL (80.0-100.0); Mean Platelet Volume 10.3 fL (9.4-12.4); Platelet Count 264 K/uL (130-400); RDW Coefficient of Variation 12.6 % (11.5-14.5); Red Blood Count 3.56 M/uL (4.70-6.10); White Blood Count 8.98 K/ul (4.8-10.8)
[2024-08-28 07:14] LABS: BUN Creatinine Ratio 10.3 (10-20); Calcium 8.4 mg/dl (8.6-10.3); Creatinine Clr Calc Pharmacy 38.7 ml/min; Potassium 3.9 mmol/L (3.5-5.1)
--- NOTE | 2024-08-28 09:25 | Urology Progress Note ---
Date of Service August 28, 2024 Assessment & Plan (1) Acute kidney injury superimposed on chronic kidney disease: (2) Sepsis: (3) S/P ureteral stent placement: Plan Improving Subjectively much better No documented fevers overnight, but patient reports sweats/chills last night Urine and blood cultures with no growth Leukocytosis resolved, creatinine is back to his baseline Continue antibiotics He is likely stable for discharge home now with antibiotic management moving for lynn, treat for a total of 10 days will sign off, please contact our service with any additional questions or concerns Admission and Anticipated Discharge Date Admission Date: August 25, 2024 Subjective Patient seen and examined at bedside this morning. He is awake and sitting up in bed. Patient generally feeling better, but still reports sweats/chills last night. Denies pain. No nausea or vomiting. Review of Systems Constitutional: as per Subjective / HPI Genitourinary: + as per Subjective / HPI Physical Exam Constitutional: well developed and well nourished; no acute distress Respiratory: normal respiratory effort; no respiratory distress and no labored breathing Gastrointestinal (Abdomen): Inspection/Auscultation: abdomen normal to inspection Musculoskeletal: Head/Neck/Chest: normocephalic Neurologic: moves all extremities and awake Psychiatric: Orientation: alert and oriented x 3 Results & Data Vital Signs (Past 12 Hours) Vital Signs Temp Pulse Pulse Resp BP Pulse Ox O2 Del Method 08/28/24 08:06 36.7 C 78 16 156/91 H 98 Room Air 08/28/24 07:18 79 08/28/24 03:43 37.4 C 96 H 18 152/88 H 95 Room Air 08/27/24 22:30 36.9 C 80 18 153/81 H 97 Room Air 08/27/24 22:11 84 PG Care Time/CCT Total # of Minutes Spent Total Time Spent with Patient: Total time spent is greater than 50% in coordination of care (as documented) at patient's floor/unit and/or counseling patient: Coding Level of Care Code 45293 SUB INP/OBS CARE 07/15MIN Diagnoses Acute kidney injury superimposed on chronic kidney disease N17.9; N18.9 Sepsis A41.9 S/P ureteral stent placement Z96.0
--- NOTE | 2024-08-28 09:57 | Discharge Summary ---
Date of Service August 28, 2024 Admission HPI Per Admitting Provider Nabeel 63 yo M with pmhx of recurrent calculi dating back to his 20s and CKD who presents to the ER today c/o fever, chills, n/v that started around 4pm yesterday. Patient reports a history of multiple kidney stones bilaterally and about 3 weeks ago he developed sepsis syndrome while in [place] and was hospitalized and treated with Cipro. He was discharged on a course of Cipro that he completed. He then reports undergoing left ureteral stent placement on Wednesday with Dr. Henderson and was instructed to remove the stent this morning. Yesterday, around 4pm he developed abrupt onset fever and chills and he proceed ed to have n/v all evening. He also endorses some hematuria and dysuria as well as right sided flank pain. He presented to the ER today, where he is noted to have a low grade fever of 37.8C (but did premedicate with APAP prior to coming in) and also a WBC of 14,390 with neutrophilic predominance. He also has a creat of 1.93 which he reports having a baseline creatinine of ~1.4-1.6. He does follow with a sheet catcher. His PCT is mildly elevated at 0.63. He BP is actually accelerated and he denies having a h/o HTN and he is tachycardic. He has received 2L of NSS and 2g IV ceftriaxone. Urology has been consulted and he has been referred to hospital medicine team for admission. CTAP ordered w/o contrast and results are pending radiologist read. Admission Exam Per Admitting Provider GENERAL: 63 yo well-nourished WM. Awake, alert, no distress. EYES: EOMI. PERRLA. Anicteric. HENT: Moist mucous membranes. No cervical lymphadenopathy. LUNGS: Clear to auscultation bilaterally. No accessory muscle use. No W/R/R. CARDIOVASCULAR: Sinus tachycardia w/o ectopy, no murmurs ABDOMEN: Soft, non-tender and non-distended. No palpable masses. BS normoactive x 4 quad. +CVA tenderness on the left. EXTREMITIES: No edema. Non-tender. Peripheral pulses +2/4. NEUROLOGIC: A&O x3. No focal neurological deficits. CN II-XII grossly intact. PSYCHIATRIC: Cooperative. Appropriate mood and affect. SKIN: Warm, dry, intact. No rashes or lesions. Principal Diagnosis Complicated urinary tract infection related to recent ureteroscopy and stone treatment/sepsis Acute kidney injury on CKD stage III due to dehydration Ureterolithiasis, being managed by urology Hypertensive urgency. Resolved Discharge Exam General: Awake, conversant Heart: S1, S2/regular rate and rhythm, no murmur rubs or gallops Lungs: Clear to auscultation bilaterally. Normal effort Abdomen: Soft/nontender/nondistended. No hepatosplenomegaly. Left CVA tenderness resolved. Extremities: No clubbing/cyanosis. No edema Behavior: Appropriate, cooperative Discharge Data Allergies Allergy/AdvReac Type Severity Reaction Status Date / Time Penicillins Allergy Hives Verified 08/25/24 11:22 Consultations 08/25/24 11:59 ED Decision to Admit Stat 08/25/24 11:59 Consult Urology Stat Ordered Studies Chest X-Ray 08/25/24 09:57 XR chest 1V portable CLINICAL HISTORY: sob COMPARISON STUDY: 07/24/2024 FINDINGS: Stable mild cardiomegaly without pulmonary vascular congestion. Inspiration is shallow. No effusion, consolidation, or pneumothorax. IMPRESSION: No acute findings. ACT 112: Negative or not required by law. Electronically signed by: Joe Olivarez M.D. 08/25/2024 10:32 AM Abdomen/Pelvis CT 08/25/24 11:[address] WITHOUT CONTRAST CT DOSE: 605.93 mGy.cm HISTORY: Acute fever with kidney stones and history of ureteral stents fever, s/p ureteral stent, recent stones TECHNIQUE: Multiaxial CT images of the abdomen and pelvis were performed without contrast. A dose lowering technique was utilized adhering to the principles of ALARA. COMPARISON STUDY: CT 07/29/2024 FINDINGS: Cardiomegaly. Mild bibasilar atelectasis. No pneumatosis or pneum operitoneum. Unremarkable spleen, pancreas and adrenal glands. Distended gallbladder. Unremarkable liver. Bilateral renal vascular calcifications. Nonobstructing calculi in the right kidney measure up to 5 mm. Resolution of the previously described left-sided hydronephrosis. There is also decreased perinephric and pararenal inflammatory stranding. No ureteral calculi are present on today's study. Nonobstructing left renal calculi measuring up to approximately 4 mm. Partial distention of the urinary bladder with wall thickening and trace intraluminal air. Prostamegaly. No lymphadenopathy. Tiny hiatal hernia. Colonic diverticulosis. Prior left-sided hernia repair. Moderate fecal retention. Small fat filled umbilical hernia. A small right inguinal hernia contains mesenteric fat and nonobstructed loop of bowel. Degenerative changes of the spine, pelvis and hips. Normal appendix. Lumbar levoscoliosis. Chronic L5 pars defects. IMPRESSION: 1. Nonobstructing bilateral nephrolithiasis. No ureteral calculi or hydronephrosis on today's exam. 2. Resolving left-sided perinephric and perirenal stranding compared to the prior study. 3. Urinary bladder wall thickening with partial distention. Correlate with urinalysis. 4. Colonic diverticulosis without acute diverticulitis. 5. Additional findings as above. ACT 112: Negative or not required by law. The above report was generated using voice recognition software. It may contain grammatical, syntax or spelling errors. Electronically signed by: Darryl Tellez M.D. 08/25/2024 12:32 PM 08/25/24 11:21 CT abd pelvis wo con Stat Hospital Course (1) Sepsis: Acute sepsis syndrome with source (tachycardia, leukocytosis) - Received normal saline Blood culture and urine culture so far negative -Was treated with ceftriaxone 2g IV daily - UA with WBCs and blood, no leukocyte esterase, nitrites, or bacteria - Urine culture and blood cultures negative so far Complicated UTI due to recent ureteroscopy and stone management - CTAP w/o contrast obtained. Results reviewed. Leukocytosis improved down from 15,000-12,000 Patient is feeling better clinically Being discharged on p.o. Keflex for 7 more days (2) Ureterolithiasis: Acute on chronic Urology involved. Recommends conservative approach and no acute intervention at this time. Patient was treated with IV antibiotics and IV fluids. - Continue flomax (3) Acute kidney injury superimposed on chronic kidney disease: Acute - Likely component of ATN related to recent FQ use (cipro) - Avoid nephrotoxic agents - Review of records indicate a baseline over the past month of 1.6-1.9 - Hydrate as noted above - Trend renal fxn with BMP in AM Creatinine improved to 1.5 from 1.8 (4) Hypertensive urgency: Acute - Multifactorial with infection + pain -Currently normotensive - Follow BP Plan DVT ppx - Lovenox 30mg sq daily Total Time Total Time Spent Total Time Spent (In Minutes): 35 Discharge Plan Discharge Items Patient Disposition: Home - Self-Care Reason For Visit: INFECTION FROM STENT Discharge Diagnosis: Complicated urinary tract infection related to recent ureteroscopy and stone treatment/sepsis Acute kidney injury on CKD stage III due to dehydration Ureterolithiasis, being managed by urology Hypertensive urgency. Resolved Activity: Resume your previous activity Non-emergency contact: Primary Care Provider Call non-emergency contact if: you have any medication questions Follow-up/Referrals: PCP,NO [Primary Care Provider] - Diet: Regular Addtl Attending Provider Instructions: Advised to follow-up with PCP in 1 week Advised to follow-up with urology as previously planned Pending Studies at Discharge: No Stand-Alone Forms: [employer] Medications and DC Order Prescriptions: New cephalexin 500 mg capsule 500 mg PO BID 7 Days Qty: 14 0RF Continued hydrocodone-acetaminophen 5-325 mg tablet 0.5 tab PO DAILY PRN (Reason: Pain) gabapentin 100 mg capsule 100 mg PO HS triamcinolone acetonide [Nasacort] 55 mcg Aerosol,Rice 2 spray INTRANASAL HS Rx Instructions: administer into each nostril acetaminophen 500 mg Capsule 1,000 mg PO BID tamsulosin [Flomax] 0.4 mg capsule 0.4 mg PO DAILY Medical Marijuana 1 dose PO HS PRN (Reason: Pain) Discharge Orders: Discharge Order (Routine); Ordered 08/28/24 Ordered By: Charanjit Massey Admission Data Admit Date/Time: 08/25/24 11:59 Attending Provider: Charanjit Massey Admit Provider: Bernardo Damian Primary Care Provider: PCP,NO Other Providers: Sampson Snyder; Bernardo Damian Other Interventions: Discharge Summary Assessment (RN) Last Done: 08/28/24 14:07
[2024-08-28 11:22] VITALS: BP 136/79; PULSE 73; RESP 18; TEMP 98.2; O2SAT 97
== END 2024-08-28 15:00 | disposition home or self-care (01) | DRG 862 ==
LOC: ED 08:57 → SUATTDRO 11:59 → PACUINP 11:59 → 2N 14:24